=== PATIENT | male | born 1945 | race Caucasian/White ===

== ENCOUNTER 2018-01-19 10:10 | Observation (INO) | payer MEDICARE, BC ==
[2018-01-19] VITALS (8 sets, daily range): BP systolic 117–182; BP diastolic 63–89; PULSE 75–89; RESP 14–18; TEMP 98–98.4; O2SAT 97–100
[~2018-01-19] VITALS: Ht 180.3 cm; Wt 95.0 kg
[~2018-01-19 10:10] MED LIST: ATOR80TA PO; CORE6.25 PO; ECOT325T PO; ISOS30TA3 PO; LISI-360 PO
[2018-01-19] MEDS ORDERED: SODIUM CHLORIDE 0.9% FLUSH 10 ML FLUSH IVF PRN (11:00)
--- NOTE | 2018-01-19 11:06 | PD ---
HPI Chief Complaint: Syncope/Near-Syncope Time Seen by Provider: 10:51 Travel History International Travel<30 days: No Contact w/Intl Traveler<30days: No Traveled to known affect area: No History of Present Illness HPI Patient is a 72-year-old male presents emergency department for evaluation of syncopal episode and head injury. Patient apparently was standing not doing anything in particular when he just fell. He is a coming by his sister who states that he was just standing or not doing a thing and ended up on the ground. This is never happened before. He denies any chest pain palpitations shortness of breath nausea vomiting diarrhea. Denies any head pain or neck pain but is fairly certain that he hit his head. He does not recall the actual event when it happened. According to his sister when they were driving here the patient had some altered sensations of awareness and was significantly altered, he was shaking but was semi-conscious during it, he has never had a history of seizure disorder in the past. He does have a history of bypass surgery. PFSH Past Medical History Cancer: Yes (skin cancer and some removal ) Cardiovascular Problems: Yes Endocrine: No Gastrointestinal Disorders: No Genitourinary: No Hypertension: Yes Immune Disorder: No Implanted Vascular Access Dvce: No Musculoskeletal: No Neurologic: No Psychiatric: No Reproductive: No Respiratory: No Past Surgical History Ear Surgery: Yes (perforated eardrum repair ) Other Surgery: No Social History Alcohol Use: Yes (occasional) Tobacco Use: No Substance Use: No Allergies-Medications (Allergen,Severity, Reaction): Coded Allergies: No Known Allergies (Unverified , 03/24/14) Reported Meds & Prescriptions Reported Meds & Active Scripts Active Review of Systems Except as stated in HPI: all other systems reviewed are Neg Physical Exam Narrative GENERAL: Well-developed well-nourished no obvious distress. SKIN: Focused skin assessment warm/dry. HEAD: Atraumatic. Normocephalic. No andino signs no raccoons eyes. EYES: Pupils equal and round. No scleral icterus. No injection or drainage. ENT: No nasal bleeding or discharge. Mucous membranes pink and moist. NECK: Trachea midline. No JVD. CARDIOVASCULAR: Regular rate and rhythm. No murmur appreciated. 2+ bilaterally equal pulses in all 4 extremities. RESPIRATORY: No accessory muscle use. Clear to auscultation. Breath sounds equal bilaterally. GASTROINTESTINAL: Abdomen soft, non-tender, nondistended. Hepatic and splenic margins not palpable. MUSCULOSKELETAL: No obvious deformities. No clubbing. No cyanosis. No edema. NEUROLOGICAL: Awake and alert. No obvious cranial nerve deficits. Motor grossly within normal limits. Normal speech. PSYCHIATRIC: Appropriate mood and affect; insight and judgment normal. Data Data Last Documented VS Vital Signs Date Time Temp Pulse Resp B/P (MAP) Pulse Ox O2 Delivery O2 Flow Rate FiO2 01/19/18 10:55 100 Room Air 01/19/18 10:44 75 17 01/19/18 10:16 98.4 131/80 (97) Orders Orders Electrocardiogram (01/19/18 10:51) Complete Blood Count With Diff (01/19/18 10:51) Comprehensive Metabolic Panel (01/19/18 10:51) Ckmb (Isoenzyme) Profile (01/19/18 10:51) Troponin I (01/19/18 10:51) Act Partial Throm Time (Ptt) (01/19/18 10:51) Prothrombin Time / Inr (Pt) (01/19/18 10:51) Chest, Single Ap (01/19/18 10:51) Ct Brain W/O Iv Contrast(Rout) (01/19/18 10:51) Ct Cerv Spine W/O Contrast (01/19/18 10:51) Ecg Monitoring (01/19/18 10:51) Iv Access Insert/Monitor (01/19/18 10:51) Oximetry (01/19/18 10:51) Sodium Chloride 0.9% Flush (Ns Flush) (01/19/18 11:00) CKMB (01/19/18 11:07) CKMB% (01/19/18 11:07) Admit Order (Ed Use Only) (01/19/18 ) Labs Laboratory Tests Test 01/19/18 11:07 White Blood Count 11.4 TH/MM3 Red Blood Count 4.73 MIL/MM3 Hemoglobin 14.6 GM/DL Hematocrit 42.1 % Mean Corpuscular Volume 88.9 FL Mean Corpuscular Hemoglobin 30.9 PG Mean Corpuscular Hemoglobin Concent 34.8 % Red Cell Distribution Width 13.3 % Platelet Count 226 TH/MM3 Mean Platelet Volume 9.3 FL Neutrophils (%) (Auto) 81.9 % Lymphocytes (%) (Auto) 7.5 % Monocytes (%) (Auto) 10.3 % Eosinophils (%) (Auto) 0.1 % Basophils (%) (Auto) 0.2 % Neutrophils # (Auto) 9.3 TH/MM3 Lymphocytes # (Auto) 0.9 TH/MM3 Monocytes # (Auto) 1.2 TH/MM3 Eosinophils # (Auto) 0.0 TH/MM3 Basophils # (Auto) 0.0 TH/MM3 CBC Comment DIFF FINAL Differential Comment Erythrocyte Sedimentation Rate 29 mm/hr Prothrombin Time 11.8 SEC Prothromb Time International Ratio 1.2 RATIO Activated Partial Thromboplast Time 29.3 SEC Blood Urea Nitrogen 8 MG/DL Creatinine 0.78 MG/DL Random Glucose 119 MG/DL Total Protein 7.3 GM/DL Albumin 3.2 GM/DL Calcium Level 8.6 MG/DL Alkaline Phosphatase 72 U/L Aspartate Amino Transf (AST/SGOT) 24 U/L Alanine Aminotransferase (ALT/SGPT) 24 U/L Total Bilirubin 1.6 MG/DL Sodium Level 141 MEQ/L Potassium Level 3.3 MEQ/L Chloride Level 105 MEQ/L Carbon Dioxide Level 28.0 MEQ/L Anion Gap 8 MEQ/L Estimat Glomerular Filtration Rate 98 ML/MIN Total Creatine Kinase 235 U/L Creatine Kinase MB 2.3 NG/ML Troponin I LESS THAN 0.02 NG/ML MDM Medical Decision Making Medical Screen Exam Complete: Yes Emergency Medical Condition: Yes Differential Diagnosis Syncope, seizure unlikely, arrhythmia, anemia peer Narrative Course Patient was roomed in the emergency department, fairly alert and oriented for me he did have some episodes of wandering after his daughter left, probably has a mild dementia. She describes a period of significant significant event that happened today. Think is reasonable for observation to the hospitalist. His initial workup with CT head, EKG basic labs and troponin are negative. Diagnosis Primary Impression: Syncope Admitting Information Admitting Physician Requests: Observation Condition: Stable Fredy Santacruz MD Jan 19, 2018 11:06
[2018-01-19 11:27] LABS: AUTOMATED NEUTROPHIL # 9.3 TH/MM3 (1.8-7.7); BASOPHIL % 0.2 % (0.0-2.0); EOSINOPHIL % 0.1 % (0.0-4.0); HEMATOCRIT 42.1 % (39.0-51.0); HEMOGLOBIN 14.6 GM/DL (13.0-17.0); LYMPH % 7.5 % (9.0-44.0); LYMPHOCYTE # 0.9 TH/MM3 (1.0-4.8); MEAN CELL VOLUME 88.9 FL (80.0-100.0); MEAN CORPUSCULAR HEMOGLOBIN 30.9 PG (27.0-34.0); MEAN CORPUSCULAR HGB CONC 34.8 % (32.0-36.0); MEAN PLATELET VOLUME 9.3 FL (7.0-11.0); MONO % 10.3 % (0.0-8.0); MONOCYTE # 1.2 TH/MM3 (0-0.9); NEUT % 81.9 % (16.0-70.0); PLATELET COUNT 226 TH/MM3 (150-450); RED BLOOD COUNT 4.73 MIL/MM3 (4.50-5.90); RED CELL DISTRIBUTION WIDTH 13.3 % (11.6-17.2); WHITE BLOOD COUNT 11.4 TH/MM3 (4.0-11.0)
--- NOTE | 2018-01-19 11:32 | RADRPT ---
EXAM DATE/TIME: 01/19/2018 11:10 [facility] COMPARISON: No previous studies available for comparison. INDICATIONS : Syncopal episode, hit head on floor. RADIATION DOSE: 66.34 CTDIvol (mGy) MEDICAL HISTORY : Hypertension. SURGICAL HISTORY : None. ENCOUNTER: Initial ACUITY: 1 day PAIN SCALE: 0/10 LOCATION: cranial TECHNIQUE: Multiple contiguous axial images were obtained of the head. Using automated exposure control and adj ustment of the mA and/or kV according to patient size, radiation dose was kept as low as reasonably a chievable to obtain optimal diagnostic quality images. DICOM format image data is available electro nically for review and comparison. FINDINGS: CEREBRUM: The ventricles are normal for age. No evidence of midline shift, mass lesion, hemorrhage or acute in farction. No extra-axial fluid collections are seen. POSTERIOR FOSSA: The cerebellum and brainstem are intact. The 4th ventricle is midline. The cerebellopontine angle i s unremarkable. EXTRACRANIAL: The visualized portion of the orbits is intact. SKULL: The calvaria is intact. No evidence of skull fracture. CONCLUSION: 1. No acute findings. Crow Matthews MD on January 19, 2018 at 11:27 Board Certified Radiologist. This report was verified electronically.
--- NOTE | 2018-01-19 11:35 | RADRPT ---
EXAM DATE/TIME: 01/19/2018 11:10 [facility] COMPARISON: No previous studies available for comparison. INDICATIONS : Trauma, syncopal episode. RADIATION DOSE: 17.52 CTDIvol (mGy) MEDICAL HISTORY : Hypertension. SURGICAL HISTORY : None. ENCOUNTER: Initial ACUITY: 1 day PAIN SCALE: 0/10 LOCATION: cranial TECHNIQUE: Volumetric scanning of the cervical spine was performed. Multiplanar reconstructions in the sagittal, coronal and oblique axial planes were performed. Using automated exposure control and adjustment o f the mA and/or kV according to patient size, radiation dose was kept as low as reasonably achievable to obtain optimal diagnostic quality images. DICOM format image data is available electronically f or review and comparison. FINDINGS: VERTEBRAE: Normal vertebral body height. ALIGNMENT: No evidence of subluxation. C2-C3: The bony spinal canal is normal in size. No evidence of disc bulge or herniation. The neural forami na are bilaterally patent. C3-C4: The bony spinal canal is normal in size. No evidence of disc bulge or herniation. The neural forami na are bilaterally patent. C4-C5: The bony spinal canal is normal in size. No evidence of disc bulge or herniation. The neural forami na are bilaterally patent. C5-C6: The bony spinal canal is normal in size. No evidence of disc bulge or herniation. The neural forami na are bilaterally patent. C6-C7: The bony spinal canal is normal in size. No evidence of disc bulge or herniation. The neural forami na are bilaterally patent. C7-T1: The bony spinal canal is normal in size. No evidence of disc bulge or herniation. The neural forami na are bilaterally patent. CONCLUSION: 1. No acute findings. Moderate degenerative disc disease and facet arthropathy. Crow Matthews MD on January 19, 2018 at 11:30 Board Certified Radiologist. This report was verified electronically.
[2018-01-19 11:36] LABS: INTERNATIONAL NORMALIZED RATIO 1.2 RATIO; PROTHROMBIN TIME - PATIENT 11.8 SEC (9.8-11.6)
--- NOTE | 2018-01-19 11:36 | RADRPT ---
EXAM DATE/TIME: 01/19/2018 10:59 [facility] COMPARISON: No previous studies available for comparison. INDICATIONS : Syncope, short of breath, chest discomfort. MEDICAL HISTORY : Myocardial infarction. SURGICAL HISTORY : CABG. ENCOUNTER: Initial ACUITY: 1 day PAIN SCORE: 0/10 LOCATION: Bilateral chest FINDINGS: A single view of the chest demonstrates the lungs to be symmetrically aerated without evidence of mas s, infiltrate or effusion. The cardiomediastinal contours are unremarkable. Postoperative median colt rnotomy. Osseous structures are intact. CONCLUSION: 1. No acute findings. Postoperative median sternotomy. Crow Matthews MD on January 19, 2018 at 11:33 Board Certified Radiologist. This report was verified electronically.
[2018-01-19 11:44] LABS: ALBUMIN 3.2 GM/DL (3.4-5.0); ALT (GPT) 24 U/L (12-78); AST (GOT) 24 U/L (15-37); BLOOD UREA NITROGEN 8 MG/DL (7-18); CALCIUM 8.6 MG/DL (8.5-10.1); CHLORIDE 105 MEQ/L (98-107); CREATININE 0.78 MG/DL (0.60-1.30); GLOMERULAR FILTRATION RATE 98 ML/MIN (>89); GLUCOSE,RANDOM 119 MG/DL (74-106); SODIUM (NA) 141 MEQ/L (136-145)
[2018-01-19 11:48] LABS: ALKALINE PHOSPHATASE 72 U/L (45-117); TOTAL BILIRUBIN ADULT 1.6 MG/DL (0.2-1.0); TOTAL PROTEIN 7.3 GM/DL (6.4-8.2); TROPONIN I LESS THAN 0.02 NG/ML (0.02-0.05)
[2018-01-19] MEDS ORDERED: SODIUM CHLORIDE 0.9% FLUSH 10 ML FLUSH IV FLUSH PRN (12:45)
[2018-01-19 13:32] LABS: TROPONIN I LESS THAN 0.02 NG/ML (0.02-0.05)
--- NOTE | 2018-01-19 14:22 | RADRPT ---
EXAM DATE/TIME: 01/19/2018 12:58 [facility] COMPARISON: No previous studies available for comparison. INDICATIONS : Syncope. MEDICAL HISTORY : Skin cancer. SURGICAL HISTORY : Skin cancer removal. ENCOUNTER: Initial ACUITY: 1 day PAIN SCORE: 0/10 LOCATION: Bilateral neck. PEAK SYSTOLIC VELOCITIES (cm/sec): ICA/CCA RATIO: Right: 0.5 Left: 0.5 ICA: Right: 39.0 Left: 48.8 CCA: Right: 83.2 Left: 98.1 ECA: Right: 67.3 Left: 52.6 VERTEBRAL: Right: 42.4 antegrade Left: 41.8 antegrade Elevated flow velocities and ICA/CCA ratios have been found to correlate with increased degrees of vessel stenosis, calculated as percentage of diameter relative to a normal segment of distal ICA/CCA FINDINGS: Minimal plaque is identified in both carotid bulbs. RIGHT CAROTID: No significant stenosis is visualized. The waveforms are within normal limits. LEFT CAROTID: No significant stenosis is visualized. The waveforms are within normal limits. VERTEBRAL ARTERIES: Antegrade flow is seen in both vertebral arteries. MISCELLANEOUS: None. CONCLUSION: 1. Minimal bilateral carotid plaque. 2. No evidence of hemodynamically significant stenosis. 3. Antegrade flow in both to arteries. Ashok Henry MD on January 19, 2018 at 14:18 Board Certified Radiologist. This report was verified electronically.
--- NOTE | 2018-01-19 15:47 | HHI.HP ---
HPI Service [facility] Hospitalists Primary Care Physician Silvia Villafana M.D. Admission Diagnosis Syncope Diagnoses: Chief Complaint: Witnessed syncopal episode and fall Travel History International Travel<30 Days: No Contact w/Intl Traveler <30 Da: No Traveled to Known Affected Are: No History of Present Illness Written by Lisseth Russell, acting as scribe for Dr. Miller on 01/19/18 at 15: 20. This is a 72-year-old male with past medical history of coronary artery disease status post previous CABG, hypertension and dyslipidemia who was brought in to [facility] ED by his sister who witnessed patient have a syncopal episode, fall backward and hit his head. Patient is extremely poor historian and therefore history is obtained from review of electronic medical record and discussion with ED physician and nursing staff. Per the ED note, patient was standing not doing anything in particular when he fell to the ground. Per the sister's report, patient was significantly altered all she was driving into the ED. He was shaking and was semi-consciousness. Patient denies any complaints at this time. He repetitively states he wants to go home. He denies any fever , chills, weakness, chest pain, shortness of breath, nausea, vomiting, abdominal pain, hematuria, dysuria or diarrhea. Reportedly, sister informed the nursing staff that patient has new onset dementia. In the ED, CT of the head was obtained which showed no acute findings. Patient's laboratory studies were significant for mild leukocytosis with white count 11.4, hypokalemia with potassium 3.3 and elevated total bilirubin 1.6. Initial troponin was negative and EKG was unremarkable. Patient had a syncopal episode in 2013 but no cause was identified. Review of Systems Except as stated in HPI: all other systems reviewed are Neg Past Family Social History Past Medical History Coronary artery disease s/p CABG Hypertension Dyslipidemia Past Surgical History CABG Reported Medications Lisinopril 10 Mg Tab 10 Mg PO BID Ec Aspirin (Aspirin) 325 Mg Tab 325 Mg PO DAILY Atorvastatin Calcium 80 Mg Tab 80 Mg PO HS Isosorbide Mononitrate Er (Isosorbide Mononitrate) 30 Mg Tab 30 Mg PO HS Coreg (Carvedilol) 6.25 Mg Tab 6.25 Mg PO BID Allergies: Coded Allergies: No Known Allergies (Unverified , 03/24/14) Active Ordered Medications Current Medications Medications (Trade) Dose Ordered Sig/Charla Route Start Time Stop Time Status Last Admin (NS Flush) 2 ml UNSCH PRN IV FLUSH 01/19/18 12:45 (NS Flush) 2 ml BID IV FLUSH 01/19/18 21:00 Family History When asked about family medical history of strokes or heart disease patient replies "probably" Social History She denies any tobacco use, alcohol consumption or illicit drug use. Apparently , he is and lives with his who is currently hospitalized herself. Physical Exam Vital Signs Vital Signs Date Time Temp Pulse Resp B/P (MAP) Pulse Ox O2 Delivery O2 Flow Rate FiO2 01/19/18 14:42 77 18 161/81 (107) 100 Room Air 01/19/18 12:55 78 18 117/63 (81) 100 Room Air 01/19/18 10:55 100 Room Air 01/19/18 10:44 75 17 96 Room Air 01/19/18 10:16 98.4 78 16 131/80 (97) 97 Physical Exam GENERAL: This is a well-nourished, well-developed male patient, in no apparent distress. Awake and alert. SKIN: No rashes, ecchymoses or lesions. Cool and dry. HEAD: Atraumatic. Normocephalic. No temporal or scalp tenderness. EYES: Pupils equal round and reactive. Extraocular motions intact. No scleral icterus. No injection or drainage. ENT: Nose without bleeding or purulent drainage. Throat without erythema, tonsillar hypertrophy or exudate. Uvula midline. Airway patent. NECK: Trachea midline. No lymphadenopathy. Supple, nontender, no meningeal signs. CARDIOVASCULAR: Regular rate and rhythm without murmurs, gallops, or rubs. RESPIRATORY: Clear to auscultation. Breath sounds equal bilaterally. No wheezes , rales, or rhonchi. GASTROINTESTINAL: Abdomen soft, non-tender, nondistended. No hepato-splenomegaly , or palpable masses. No guarding. MUSCULOSKELETAL: Extremities without clubbing, cyanosis, or edema. No joint tenderness, effusion, or edema noted. No calf tenderness. NEUROLOGICAL: Awake and alert. Patient is oriented to self and place but disoriented to time. Cranial nerves II through XII grossly intact. Motor and sensory grossly within normal limits. Five out of 5 muscle strength in all muscle groups. Normal speech. Laboratory Laboratory Tests Test 01/19/18 11:07 01/19/18 12:50 White Blood Count 11.4 Red Blood Count 4.73 Hemoglobin 14.6 Hematocrit 42.1 Mean Corpuscular Volume 88.9 Mean Corpuscular Hemoglobin 30.9 Mean Corpuscular Hemoglobin Concent 34.8 Red Cell Distribution Width 13.3 Platelet Count 226 Mean Platelet Volume 9.3 Neutrophils (%) (Auto) 81.9 Lymphocytes (%) (Auto) 7.5 Monocytes (%) (Auto) 10.3 Eosinophils (%) (Auto) 0.1 Basophils (%) (Auto) 0.2 Neutrophils # (Auto) 9.3 Lymphocytes # (Auto) 0.9 Monocytes # (Auto) 1.2 Eosinophils # (Auto) 0.0 Basophils # (Auto) 0.0 CBC Comment DIFF FINAL Differential Comment Prothrombin Time 11.8 Prothromb Time International Ratio 1.2 Activated Partial Thromboplast Time 29.3 Blood Urea Nitrogen 8 Creatinine 0.78 Random Glucose 119 Total Protein 7.3 Albumin 3.2 Calcium Level 8.6 Alkaline Phosphatase 72 Aspartate Amino Transf (AST/SGOT) 24 Alanine Aminotransferase (ALT/SGPT) 24 Total Bilirubin 1.6 Sodium Level 141 Potassium Level 3.3 Chloride Level 105 Carbon Dioxide Level 28.0 Anion Gap 8 Estimat Glomerular Filtration Rate 98 Total Creatine Kinase 235 Creatine Kinase MB 2.3 Troponin I LESS THAN 0.02 LESS THAN 0.02 Ethyl Alcohol Level LESS THAN 3 Result Diagram: 01/19/18 1107 01/19/18 1107 Imaging Last Impressions Head CT 01/19/18 105 Signed Impressions: Service Date/Time: Friday, January 19, 2018 11:10 - CONCLUSION: 1. No acute findings. Crow Matthews MD Chest X-Ray 01/19/181050 Signed Impressions: Service Date/Time: Friday, January 19, 2018 10:59 - CONCLUSION: 1. No acute findings. Postoperative median sternotomy. Crow Matthews MD Cervical Spine CT 01/19/181050 Signed Impressions: Service Date/Time: Friday, January 19, 2018 11:10 - CONCLUSION: 1. No acute findings. Moderate degenerative disc disease and facet arthropathy. Crow Matthews MD Caprini VTE Risk Assessment Caprini VTE Risk Assessment: Mod/High Risk (score >= 2) Caprini Risk Assessment Model Point Value = 1 Point Value = 2 Point Value = 3 Point Value = 5 Age 41-60 Minor surgery BMI > 25 kg/m2 Swollen legs Varicose veins or History of unexplained or recurrent spontaneous Oral contraceptives or hormone replacement Sepsis (< 1 month) Serious lung disease, including pneumonia (< 1 month) Abnormal pulmonary function Acute myocardial infarction Congestive heart failure (< 1 month) History of inflammatory bowel disease Medical patient at bed rest Age 61-74 Arthroscopic surgery Major open surgery (> 45 min) Laparoscopic surgery (> 45 min) Malignancy Confined to bed (> 72 hours) Immobilizing plaster cast Central venous access Age >= 75 History of VTE Family history of VTE Factor V Leiden Prothrombin [id number] Lupus anticoagulant Anticardiolipin antibodies Elevated serum homocysteine Heparin-induced thrombocytopenia Other congenital or acquired thrombophilia Stroke (< 1 month) Elective arthroplasty Hip, pelvis, or leg fracture Acute spinal cord injury (< 1 month) Prophylaxis Regimen Total Risk Factor Score Risk Level Prophylaxis Regimen 0-1 Low Early ambulation 2 Moderate Order ONE of the following: *Sequential Compression Device (SCD) *Heparin 5000 units SQ BID 3-4 Higher Order ONE of the following medications: *Heparin 5000 units SQ TID *Enoxaparin/Lovenox 40 mg SQ daily (WT < 150 kg, CrCl > 30 mL/min) *Enoxaparin/Lovenox 30 mg SQ daily (WT < 150 kg, CrCl > 10-29 mL/min) *Enoxaparin/Lovenox 30 mg SQ BID (WT < 150 kg, CrCl > 30 mL/min) AND/OR *Sequential Compression Device (SCD) 5 or more Highest Order ONE of the following medications: *Heparin 5000 units SQ TID (Preferred with Epidurals) *Enoxaparin/Lovenox 40 mg SQ daily (WT < 150 kg, CrCl > 30 mL/min) *Enoxaparin/Lovenox 30 mg SQ daily (WT < 150 kg, CrCl > 10-29 mL/min) *Enoxaparin/Lovenox 30 mg SQ BID (WT < 150 kg, CrCl > 30 mL/min) AND *Sequential Compression Device (SCD) Assessment and Plan Assessment and Plan 72-year-old male with past medical history of coronary artery disease status post previous CABG, hypertension and dyslipidemia who was brought in to [facility] ED by his sister who witnessed patient have a syncopal episode, fall backward and hit his head. //Syncopal episode in patient with CAD s/p CABG -Consult neurology, appreciate recommendations -Consult cardiology, appreciate recommendations -Neuro checks -obtain orthostatic BP measurements -Continuous cardiac monitoring -Obtain carotid ultrasound -EEG study -Holter monitor -Obtain 2D echo -serial troponin and EKG -Obtain UDS -seizure and fall precautions -obtain TSH level and A1c //Encephalopathy/AMS -?new onset dementia -Await Neurology recommendations -Monitor //Hypokalemia -replete and repeat BMP in am //Hypertension //Dyslipidemia -Will resume patient's home medications once medication reconciliation updated //DVT prophylaxis -Bilateral SCD/DIMITRIS kaelamarissa Discussed Condition With Patient, ED physician, nursing staff This note was transcribed by stephanie Russell. I, Dr. Frandy Miller personally performed the history, physical exam, and medical decision making; and confirmed the accuracy of the information in the transcribed note. Authenticated by Dr. Frandy Miller on 01/21/18 at 07:43. Lisseth Russell Jan 19, 2018 15:47 Frandy Miller MD Jan 21, 2018 07:43
--- NOTE | 2018-01-19 15:49 | PD.CONS ---
History of Present Illness Service Neurology Consult Requested By er Reason for Consult syncope Primary Care Physician Silvia Villafana M.D. History of Present Illness 72-year-old male presents emergency department for evaluation of syncopal episode and head injury. went down without warning witnessed by sister who is not here. pt is a poor hx. his focus during the interview is leaving hospital. he denies any brewer, focal weakness, vision loss. denies hx of tia/stroke/sz. had [place]ope 2013 [place] [facility] [place]. PFSH Past Medical History Cardiovascular Problems: CABG Hypertension: Yes Past Surgical History Ear Surgery: Yes (perforated eardrum repair ) Other Surgery: No Social History Alcohol Use: Yes (occasional) Tobacco Use: No Substance Use: No lives with spouse Allergies-Medications (Allergen,Severity, Reaction): Coded Allergies: No Known Allergies (Unverified , 03/24/14) Reported Meds & Prescriptions Reported Meds & Active Scripts Active Reported Lisinopril 10 Mg Tab 10 Mg PO BID Ec Aspirin (Aspirin) 325 Mg Tab 325 Mg PO DAILY Atorvastatin Calcium 80 Mg Tab 80 Mg PO HS Isosorbide Mononitrate Er (Isosorbide Mononitrate) 30 Mg Tab 30 Mg PO HS Coreg (Carvedilol) 6.25 Mg Tab 6.25 Mg PO BID Review of Systems All other ROS: ROS reviewed as documented in chart Past Family Social History Allergies: Coded Allergies: No Known Allergies (Unverified , 03/24/14) Active Ordered Medications Current Medications Medications (Trade) Dose Ordered Sig/Charla Route Start Time Stop Time Status Last Admin (NS Flush) 2 ml UNSCH PRN IV FLUSH 01/19/18 12:45 (NS Flush) 2 ml BID IV FLUSH 01/19/18 21:00 Exam I&O / VS Vital Signs Date Time Temp Pulse Resp B/P (MAP) Pulse Ox O2 Delivery O2 Flow Rate FiO2 01/19/18 14:42 77 18 161/81 (107) 100 Room Air 01/19/18 12:55 78 18 117/63 (81) 100 Room Air 01/19/18 10:55 100 Room Air 01/19/18 10:44 75 17 96 Room Air 01/19/18 10:16 98.4 78 16 131/80 (97) 97 General: No acute distress Eye: EOMI, Normal conjuctiva Respiratory: Non-labored respirations Cardiology: Normal rate Musculoskeletal: ROM Neurologic: Alert, Normal sensory, Normal motor, CN II-XII intact, Normal DTR's Psychiatric: Cooperative, Appropriate mood & affect Exam Comments alert, ox 2. not to exact month or date. knows the year. pres Alexsander, pcp Broderick. follows, eomi, ou 3-2mm, no drift, msr sym Review/Management Diagnosis/Plan: (1) Syncope ICD Codes: R55 - Syncope Status: Acute Plan: etiology: cardiac arrhythmia? r/o vbi r/o sz glucose 119. ct brain nml recs cardio eval/tele mri/mra brain eeg f/u tsh orthostatics no driving needs outpatient cognitive eval (2) Dehydration ICD Codes: E86.0 - Dehydration Status: Acute (3) Hypertension ICD Codes: I10 - Hypertension Status: Acute (4) Hyperlipidemia ICD Codes: E78.5 - Hyperlipidemia Status: Acute Alexx Nielsen MD Jan 19, 2018 15:49
--- NOTE | 2018-01-19 16:44 | MG ---
cc: Og Khan MD, PhD Og Khan MD PhD TEST NUMBER: [id number] TECHNIQUE: A 17-channel EEG. DESCRIPTION: The background activity reveals mild slowing in the theta range at roughly 6 Hz. Amplitude is 20-30 microvolts. No lateralizing features are identified and no epileptiform features are identified. There is occasional muscle artifact. Hyperventilation was not done. Photic results in a modest driving response. INTERPRETATION: Mildly abnormal study consistent with a mild encephalopathy. Og Khan MD, PhD AMOL//kevin , 04:29 PM , 04:38 PM
[2018-01-19] MEDS ORDERED: POTASSIUM CHLORIDE 10 MEQ CONTROLLED RELEASE TAB PO ONE (16:45)
[2018-01-19 18:09] LABS: MAGNESIUM 2.3 MG/DL (1.5-2.5)
[2018-01-19 18:34] LABS: TROPONIN I LESS THAN 0.02 NG/ML (0.02-0.05)
[2018-01-19] MEDS: SODIUM CHLORIDE 0.9% FLUSH 10 ML FLUSH IV FLUSH SCH (21:00)
[2018-01-20] VITALS (7 sets, daily range): BP systolic 129–190; BP diastolic 71–88; PULSE 70–89; RESP 14–20; TEMP 97.9–99.4; O2SAT 95–98
[2018-01-20] MEDS ORDERED: cloNIDine HCL 0.1 MG TAB PO ONE (00:30)
--- NOTE | 2018-01-20 00:38 | MB ---
cc: Bolivar Moreira MD DATE: 01/19/2018 HISTORY OF PRESENT ILLNESS: Kevan is a very pleasant 72-year-old gentleman. He has a career consultant, but he cannot remember who the career consultant is. He had a syncopal episode prior to arrival to the ER, with a head injury. He does not recall the event. He denies chest pain, fever, chills, cough, GI or , bleeding, PND or orthopnea. The event was witnessed by his sister, who noted no prodromal type symptoms. PAST MEDICAL HISTORY: Includes CABG, skin cancer, perforated eardrum. SOCIAL HISTORY: Drinks alcohol occasionally. Denies tobacco use. ALLERGIES: NONE. MEDICATIONS: In the hospital, potassium repletion. PHYSICAL EXAMINATION: VITAL SIGNS: Blood pressure 183/89, pulse 89, respiration rate 14, temperature 98.0. GENERAL: He is alert and oriented x3, in no acute distress. NECK: Supple. No JVD. No bruit. CARDIOVASCULAR: S1, S2, no murmurs, rubs or gallops. LUNGS: Clear to auscultation bilaterally. ABDOMEN: Soft, nontender, nondistended, with positive bowel sounds. EXTREMITIES: No cyanosis, clubbing or edema. IMAGING: Carotid ultrasound shows minimal bilateral carotid plaque. Head CT: No acute findings. ____: No acute findings, postoperative median sternotomy. Cervical spine CT: No acute findings; moderate degenerative disk disease and facet arthropathy. EKG shows normal sinus rhythm with PACs. Repeat EKG: Normal sinus rhythm with PACs, corrected QT interval is 414 milliseconds. LABORATORY DATA: White count 11.4, hemoglobin 14.6, hematocrit 42.1, platelet count 226. Troponin less than 0.02 x3. Sodium 141, potassium 3.3, chloride 105, bicarb 20.0, BUN 8, creatinine 0.78, glucose 119. Ethyl alcohol is less than 3. FINAL DIAGNOSES: 1. Syncope with no prodrome. 2. Coronary artery disease. 3. History of hypertension. DISCUSSION: Recommend followup neurology recommendations, also followup 2D echo. Continue telemetry monitoring. Optimally, the patient should be on aspirin, statin and restart his beta dariela, but this will need to be cleared by neurology given the presentation of syncope. MD FABIANO Zeng/KEVAN , 11:47 PM , 12:36 AM
[2018-01-20 04:48] LABS: AUTOMATED NEUTROPHIL # 9.2 TH/MM3 (1.8-7.7); BASOPHIL % 0.1 % (0.0-2.0); EOSINOPHIL % 0.1 % (0.0-4.0); HEMATOCRIT 41.6 % (39.0-51.0); HEMOGLOBIN 14.5 GM/DL (13.0-17.0); LYMPH % 11.9 % (9.0-44.0); LYMPHOCYTE # 1.4 TH/MM3 (1.0-4.8); MEAN CELL VOLUME 90.3 FL (80.0-100.0); MEAN CORPUSCULAR HEMOGLOBIN 31.5 PG (27.0-34.0); MEAN CORPUSCULAR HGB CONC 34.8 % (32.0-36.0); MEAN PLATELET VOLUME 8.8 FL (7.0-11.0); MONO % 9.2 % (0.0-8.0); MONOCYTE # 1.1 TH/MM3 (0-0.9); NEUT % 78.7 % (16.0-70.0); PLATELET COUNT 268 TH/MM3 (150-450); RED CELL DISTRIBUTION WIDTH 13.4 % (11.6-17.2); WHITE BLOOD COUNT 11.7 TH/MM3 (4.0-11.0)
[2018-01-20 05:13] LABS: BICARBONATE 28.4 MEQ/L (21.0-32.0); CREATININE 0.78 MG/DL (0.60-1.30)
[2018-01-20] MEDS ORDERED: RESP: ALBUTEROL 2.5 MG/IPRATROPIUM 0.5 MG NEB (SCH) NEB ONE (08:15)
--- NOTE | 2018-01-20 08:18 | HHI.PR ---
Review/Management Diagnosis/Plan: (1) Syncope ICD Codes: R55 - Syncope Status: Acute Plan: etiology: cardiac arrhythmia? r/o vbi r/o sz glucose 119. ct brain nml i suspect he may have mci/early dementia recs cardio eval/tele-done mri/mra brain-pending eeg- no sz can be dc'd if mri/mra nml f/u with us in 1-2 weeks no driving needs outpatient cognitive eval (2) Dehydration ICD Codes: E86.0 - Dehydration Status: Acute (3) Hypertension ICD Codes: I10 - Hypertension Status: Acute (4) Hyperlipidemia ICD Codes: E78.5 - Hyperlipidemia Status: Acute Subjective Subjective Comments No acute events reported No headache No chest pain No dyspnea Active Medications Current Medications Medications (Trade) Dose Ordered Sig/Charla Route Start Time Stop Time Status Last Admin (NS Flush) 2 ml UNSCH PRN IV FLUSH 01/19/18 12:45 (NS Flush) 2 ml BID IV FLUSH 01/19/18 21:00 (Duoneb Neb) 1 ampule ONCE ONCE NEB 01/20/18 08:15 01/20/18 08:16 (Duoneb Neb) 1 ampule Q6HR WHILE AWAKE NEB NEB 01/20/18 14:00 Allergies Allergies Coded Allergies No Known Allergies (Unverified03/24/14) Review of Systems All other ROS: ROS reviewed as documented in chart Exam I&O / VS Vital Signs Date Time Temp Pulse Resp B/P (MAP) Pulse Ox O2 Delivery O2 Flow Rate FiO2 01/20/18 04:52 97.9 80 18 129/71 (90) 96 01/20/18 00:21 98.2 76 14 190/81 (117) 97 01/19/18 19:10 98.0 89 14 182/89 (120) 97 01/19/18 18:30 98.4 86 18 119/87 (98) 98 01/19/18 18:20 75 17 142/78 (99) 100 Room Air 01/19/18 16:03 85 17 178/86 (116) 98 Room Air 01/19/18 14:42 77 18 161/81 (107) 100 Room Air 01/19/18 12:55 78 18 117/63 (81) 100 Room Air 01/19/18 10:55 100 Room Air 01/19/18 10:44 75 17 96 Room Air 01/19/18 10:16 98.4 78 16 131/80 (97) 97 General: No acute distress Eye: EOMI, Normal conjuctiva Respiratory: Non-labored respirations Cardiology: Normal rate Musculoskeletal: ROM Neurologic: Alert, Normal sensory, Normal motor, CN II-XII intact, Normal DTR's Psychiatric: Cooperative, Appropriate mood & affect Exam Comments alert, ox 2. not to exact month or date. was struggling with name of hospital, calm, pleasant, answers other questions well, follows, eomi, ou 3-2mm, no drift , msr sym, no drift Objective Micro and Labs Laboratory Tests Test 01/19/18 11:07 01/19/18 12:50 01/19/18 17:10 01/20/18 04:20 White Blood Count 11.4 11.7 Red Blood Count 4.73 4.60 Hemoglobin 14.6 14.5 Hematocrit 42.1 41.6 Mean Corpuscular Volume 88.9 90.3 Mean Corpuscular Hemoglobin 30.9 31.5 Mean Corpuscular Hemoglobin Concent 34.8 34.8 Red Cell Distribution Width 13.3 13.4 Platelet Count 226 268 Mean Platelet Volume 9.3 8.8 Neutrophils (%) (Auto) 81.9 78.7 Lymphocytes (%) (Auto) 7.5 11.9 Monocytes (%) (Auto) 10.3 9.2 Eosinophils (%) (Auto) 0.1 0.1 Basophils (%) (Auto) 0.2 0.1 Neutrophils # (Auto) 9.3 9.2 Lymphocytes # (Auto) 0.9 1.4 Monocytes # (Auto) 1.2 1.1 Eosinophils # (Auto) 0.0 0.0 Basophils # (Auto) 0.0 0.0 CBC Comment DIFF FINAL DIFF FINAL Differential Comment Erythrocyte Sedimentation Rate 29 Prothrombin Time 11.8 Prothromb Time International Ratio 1.2 Activated Partial Thromboplast Time 29.3 Blood Urea Nitrogen 8 10 Creatinine 0.78 0.78 Random Glucose 119 107 Total Protein 7.3 Albumin 3.2 Calcium Level 8.6 9.0 Alkaline Phosphatase 72 Aspartate Amino Transf (AST/SGOT) 24 Alanine Aminotransferase (ALT/SGPT) 24 Total Bilirubin 1.6 Sodium Level 141 142 Potassium Level 3.3 3.7 Chloride Level 105 104 Carbon Dioxide Level 28.0 28.4 Anion Gap 8 10 Estimat Glomerular Filtration Rate 98 98 Total Creatine Kinase 235 Creatine Kinase MB 2.3 Troponin I LESS THAN 0.02 LESS THAN 0.02 LESS THAN 0.02 Ethyl Alcohol Level LESS THAN 3 Magnesium Level 2.3 Vitamin B12 Level 414 Thyroid Stimulating Hormone 3rd Gen 0.767 Alexx Nielsen MD Jan 20, 2018 08:18
--- NOTE | 2018-01-20 09:12 | HHI.PR ---
Subjective Remarks Follow-up on patient with syncopal episode. Patient seen and examined. Patient remains confused. He denies any acute medical complaints. Denies any vision loss, headache or dizziness. Denies any chest pain or shortness of breath. Does report some cough with thick sputum production. Denies any fever or chills. Denies any nausea, vomiting or abdominal pain. Denies any urinary difficulties, diarrhea or constipation. Objective Vitals Vital Signs Date Time Temp Pulse Resp B/P (MAP) Pulse Ox O2 Delivery O2 Flow Rate FiO2 01/20/18 08:38 98.0 79 16 145/72 (96) 96 146/82 (103) 153/88 (109) 01/20/18 04:52 97.9 80 18 129/71 (90) 96 01/20/18 00:21 98.2 76 14 190/81 (117) 97 01/19/18 19:10 98.0 89 14 182/89 (120) 97 01/19/18 18:30 98.4 86 18 119/87 (98) 98 01/19/18 18:20 75 17 142/78 (99) 100 Room Air 01/19/18 16:03 85 17 178/86 (116) 98 Room Air 01/19/18 14:42 77 18 161/81 (107) 100 Room Air 01/19/18 12:55 78 18 117/63 (81) 100 Room Air 01/19/18 10:55 100 Room Air 01/19/18 10:44 75 17 96 Room Air 01/19/18 10:16 98.4 78 16 131/80 (97) 97 Result Diagram: 01/20/1841901/20/18419 Imaging Last Impressions Head CT 01/19/18 105 Signed Impressions: Service Date/Time: Friday, January 19, 2018 11:10 - CONCLUSION: 1. No acute findings. Crow Matthews MD Chest X-Ray 01/19/18 105 Signed Impressions: Service Date/Time: Friday, January 19, 2018 10:59 - CONCLUSION: 1. No acute findings. Postoperative median sternotomy. Crow Matthews MD Cervical Spine CT 01/19/18 105 Signed Impressions: Service Date/Time: Friday, January 19, 2018 11:10 - CONCLUSION: 1. No acute findings. Moderate degenerative disc disease and facet arthropathy. Crow Matthews MD Carotid Artery Ultrasound 01/19/18 0000 Signed Impressions: Service Date/Time: Friday, January 19, 2018 12:58 - CONCLUSION: 1. Minimal bilateral carotid plaque. 2. No evidence of hemodynamically significant stenosis. 3. Antegrade flow in both to arteries. Ashok Henry MD Objective Remarks GENERAL: This is a well-nourished, well-developed male patient, in no apparent distress. Awake and alert. Sitter at the bedside. SKIN: Cool and dry. HEAD: Atraumatic. Normocephalic. EYES: Extraocular motions intact. No scleral icterus. No injection or drainage. ENT: Nose without bleeding or purulent drainage. Airway patent. MMM. NECK: Trachea midline. CARDIOVASCULAR: Regular rate and rhythm without murmurs, gallops, or rubs. RESPIRATORY: Coarse BS, clears with coughing. Mild wheezing. GASTROINTESTINAL: Abdomen soft, non-tender, nondistended. No hepato-splenomegaly , or palpable masses. No guarding. MUSCULOSKELETAL: Extremities without clubbing, cyanosis, or edema. NEUROLOGICAL: Awake and alert. Patient is oriented to self only. Cranial nerves II through XII grossly intact. Motor and sensory grossly within normal limits. No focal neurologic findings. Normal speech. Medications and IVs Current Medications Medications (Trade) Dose Ordered Sig/Charla Route Start Time Stop Time Status Last Admin (NS Flush) 2 ml UNSCH PRN IV FLUSH 01/19/18 12:45 (NS Flush) 2 ml BID IV FLUSH 01/19/18 21:00 (Duoneb Neb) 1 ampule Q6HR WHILE AWAKE NEB NEB 01/20/18 14:00 A/P Assessment and Plan 72-year-old male with past medical history of coronary artery disease status post previous CABG, hypertension and dyslipidemia who was brought in to [facility] ED by his sister who witnessed patient have a syncopal episode, fall backward and hit his head. //Syncopal episode in patient with CAD s/p CABG -Consult neurology, appreciate recommendations - likely early dementia, cleared for discharge if MRI/MRA WNL. No driving. Needs outpt cognitive evaluation. F/U in 1-2 weeks. -Consult cardiology, appreciate recommendations - aspirin, statin and resume BB when cleared by neurology. -Neuro checks -orthostatic BP measurements negative -Continuous cardiac monitoring -Carotid ultrasound minimal bilateral carotid plaque, no hemodynamically significant stenosis -EEG study - no e/o seizure -Holter monitor -2D echo - pending -serial troponin and EKG, r/o ACS -Obtain UA/UDS - pending -seizure and fall precautions -TSH level 0.767 -A1c pending //Encephalopathy/AMS -?new onset dementia -Await Neurology recommendations -Monitor -ST for cognitive evaluation -Consult case management to assist with discharge planning //Suspected Mild COPD exacerbation -Duonebs -CXR reviewed, no evidence of acute cardiopulmonary process -O2 sats 96% on room air -monitor respiratory status //Hypokalemia -Resolved status post repletion //Hypertension //Dyslipidemia -Will resume patient's home medications once medication reconciliation updated //DVT prophylaxis -Bilateral SCD/DIMITRIS hose Discharge Planning Likely discharge later today pending cardiology clearance, echo results, MRI/ MRA results and case management assistance with placement Lisseth Russell Jan 20, 2018 09:12
[2018-01-20] MEDS ORDERED: LISINOPRIL 5 MG TAB PO ONE (09:15)
[2018-01-20] MEDS ORDERED: CARVEDILOL 6.25 MG TAB PO ONE (09:15)
[2018-01-20] MEDS: SODIUM CHLORIDE 0.9% FLUSH 10 ML FLUSH IV FLUSH SCH ×2 (10:28→21:47)
[2018-01-20] MEDS ORDERED: ATOR80TA45 PO (13:13)
[2018-01-20] MEDS ORDERED: LISI-515 PO (13:13)
[2018-01-20] MEDS ORDERED: ASPI-183 PO (13:13)
[2018-01-20] MEDS: RESP: ALBUTEROL 2.5 MG/IPRATROPIUM 0.5 MG NEB (SCH) NEB ×2 (13:25→20:08)
--- NOTE | 2018-01-20 13:30 | ECHRPT ---
Indication: CVA/TIA CONCLUSIONS Normal left ventricular size. Wall thickness is normal. The left ventricular systolic function is hyperdynamic with an estimated ejection fraction in the ra nge of 65- 70%. There is abnormal septal motion. The right ventricle is mildly dilated. The right ventricular systoilc function is normal. The left atrial size is pxpz-tk-wnznnjosrt dilated. The right atrial size is mildly dilated. Mild mitral annular calcification. Mild mitral valve regurgitation. There is trace tricuspid valve regurgitation. The inferior vena cava was not well visualized. BP: 129 / 71 HR: 80 Rhythm: Sinus MEASUREMENTS (Male / Female) Normal Values Technical Quality:Fair 2D ECHO LV Diastolic Diameter PLAX 4.9 cm 4.2 - 5.9 / 3.9 - 5.3 cm LV Systolic Diameter PLAX 3.3 cm IVS Diastolic Thickness 0.8 cm 0.6 - 1.0 / 0.6 - 0.9 cm LVPW Diastolic Thickness 0.8 cm 0.6 - 1.0 / 0.6 - 0.9 cm LV Relative Wall Thickness 0.3 RV Internal Dim ED PLAX 3.6 cm LVOT Diameter 2.0 cm Aortic Root Diameter 2.9 cm LA Systolic Diameter LX 3.9 cm 3.0 - 4.0 / 2.7 - 3.8 cm M-MODE AV Cusp Separation MM 2.0 cm DOPPLER AV Peak Velocity 124.0 cm/s AV Peak Gradient 6.2 mmHg AV Mean Gradient 4.0 mmHg AV Velocity Time Integral 23.3 cm LVOT Peak Velocity 82.7 cm/s LVOT Peak Gradient 2.7 mmHg LVOT Velocity Time Integral 18.7 cm AV Area Cont Eq vti 2.5 cm AV Area Cont Eq pk 2.1 cm Mitral E Point Velocity 85.9 cm/s Mitral A Point Velocity 101.0 cm/s Mitral E to A Ratio 0.9 LV E' Lateral Velocity 9.3 cm/s Mitral E to LV E' Lateral Ratio 9.3 PV Peak Velocity 78.2 cm/s PV Peak Gradient 2.4 mmHg FINDINGS LEFT VENTRICLE Normal left ventricular size. Wall thickness is normal. The left ventricular systolic function is hyperdynamic with an estimated ejection fraction in the ra nge of 65- 70%. There is abnormal septal motion. RIGHT VENTRICLE The right ventricle is mildly dilated. The right ventricular systoilc function is normal. LEFT ATRIUM The left atrial size is oddg-qh-dgacbecaei dilated. RIGHT ATRIUM The right atrial size is mildly dilated. ATRIAL SEPTUM The interatrial septum not well visualized. AORTA The aortic root and proximal ascending aorta are not well visualized. MITRAL VALVE Mild mitral annular calcification. Mild mitral valve regurgitation. AORTIC VALVE Trileaflet aortic valve. No aortic valve stenosis or regurgitation. TRICUSPID VALVE There is trace tricuspid valve regurgitation. PULMONARY VALVE No pulmonary valve regurgitation or stenosis. VESSELS The inferior vena cava was not well visualized. PERICARDIUM No pericardial effusion. Bolivar Moreira MD, FACC, [facility] (Electronically Signed) Final Date:20 January 2018 13:29
--- NOTE | 2018-01-20 15:08 | PD.CARD.PN ---
Subjective Subjective Remarks patient upset @ admission and evaluation process, appears slightly confused but ow alert in nad Objective Medications Current Medications Medications (Trade) Dose Ordered Sig/Charla Route Start Time Stop Time Status Last Admin (NS Flush) 2 ml UNSCH PRN IV FLUSH 01/19/18 12:45 (NS Flush) 2 ml BID IV FLUSH 01/19/18 21:00 01/20/18 10:28 (Duoneb Neb) 1 ampule Q6HR WHILE AWAKE NEB NEB 01/20/18 14:00 01/20/18 13:25 (Coreg) 6.25 mg Q12HR PO 01/20/18 21:00 (Prinivil) 5 mg Q12HR PO 01/20/18 21:00 (Ecotrin Ec) 325 mg DAILY PO 01/21/18 09:00 (Lipitor) 80 mg HS PO 01/20/18 21:00 Vital Signs / I&O Vital Signs Date Time Temp Pulse Resp B/P (MAP) Pulse Ox O2 Delivery O2 Flow Rate FiO2 01/20/18 11:22 98.2 76 20 141/83 (102) 95 01/20/18 08:38 98.0 79 16 145/72 (96) 96 146/82 (103) 153/88 (109) 01/20/18 04:52 97.9 80 18 129/71 (90) 96 01/20/18 00:21 98.2 76 14 190/81 (117) 97 01/19/18 19:10 98.0 89 14 182/89 (120) 97 01/19/18 18:30 98.4 86 18 119/87 (98) 98 01/19/18 18:20 75 17 142/78 (99) 100 Room Air 01/19/18 16:03 85 17 178/86 (116) 98 Room Air Physical Exam GENERAL: SKIN: Warm and dry. HEAD: Normocephalic. EYES: No scleral icterus. No injection or drainage. NECK: Supple, trachea midline. No JVD or lymphadenopathy. CARDIOVASCULAR: Regular rate and rhythm without murmurs, gallops, or rubs. RESPIRATORY: Breath sounds equal bilaterally. No accessory muscle use. GASTROINTESTINAL: Abdomen soft, non-tender, nondistended. MUSCULOSKELETAL: No cyanosis, or edema. BACK: Nontender without obvious deformity. No CVA tenderness. Laboratory Laboratory Tests Test 01/19/18 17:10 01/20/18 04:20 Magnesium Level 2.3 MG/DL Troponin I LESS THAN 0.02 NG/ML Vitamin B12 Level 414 PG/ML Thyroid Stimulating Hormone 3rd Gen 0.767 uIU/ML White Blood Count 11.7 TH/MM3 Red Blood Count 4.60 MIL/MM3 Hemoglobin 14.5 GM/DL Hematocrit 41.6 % Mean Corpuscular Volume 90.3 FL Mean Corpuscular Hemoglobin 31.5 PG Mean Corpuscular Hemoglobin Concent 34.8 % Red Cell Distribution Width 13.4 % Platelet Count 268 TH/MM3 Mean Platelet Volume 8.8 FL Neutrophils (%) (Auto) 78.7 % Lymphocytes (%) (Auto) 11.9 % Monocytes (%) (Auto) 9.2 % Eosinophils (%) (Auto) 0.1 % Basophils (%) (Auto) 0.1 % Neutrophils # (Auto) 9.2 TH/MM3 Lymphocytes # (Auto) 1.4 TH/MM3 Monocytes # (Auto) 1.1 TH/MM3 Eosinophils # (Auto) 0.0 TH/MM3 Basophils # (Auto) 0.0 TH/MM3 CBC Comment DIFF FINAL Differential Comment Blood Urea Nitrogen 10 MG/DL Creatinine 0.78 MG/DL Random Glucose 107 MG/DL Calcium Level 9.0 MG/DL Sodium Level 142 MEQ/L Potassium Level 3.7 MEQ/L Chloride Level 104 MEQ/L Carbon Dioxide Level 28.4 MEQ/L Anion Gap 10 MEQ/L Estimat Glomerular Filtration Rate 98 ML/MIN Assessment and Plan Problem List: (1) Coronary disease ICD Codes: I25.9 - Coronary disease Status: Acute (2) Syncope ICD Codes: R55 - Syncope Status: Acute Assessment and Plan 1.) CAD - assymptomatic, continue aspirin, coreg, lisinopril, lipitor 2.) Syncope - echo unremarkable, f/u neuro recs, continue telemetry Bolivar Moreira MD Jan 20, 2018 15:08
[2018-01-20] MEDS ORDERED: cloNIDine HCL 0.1 MG TAB PO PRN (15:30)
[2018-01-20 17:39] LABS: BILIRUBIN, URINE NEG (NEG); BLOOD, URINE SMALL (NEG); GLUCOSE,URINE NEG (NEG); KETONE, URINE TRACE mg/dL (NEG); MUCUS URINE FEW /lpf (OCC); NITRITE,URINE NEG (NEG); URINE COLOR YELLOW (YELLW/STRAW); URINE LEUKOCYTE ESTERASE SMALL (NEG)
--- NOTE | 2018-01-20 18:25 | RADRPT ---
EXAM DATE/TIME: 01/20/2018 17:26 [facility] COMPARISON: No previous studies available for comparison. INDICATIONS : Altered mental status. Syncope. MEDICAL HISTORY : Hypertension. SURGICAL HISTORY : CABG ENCOUNTER: Subsequent ACUITY: 1 day PAIN SCORE: 0/10 LOCATION: head. TECHNIQUE: Multiplanar, multisequence MRI of the brain was performed without contrast. FINDINGS: CEREBRUM: The ventricles are normal for age. No evidence of midline shift, mass lesion, hemorrhage or acute in farction. No extraaxial fluid collections are seen. The pituitary gland and suprasellar cistern are normal in configuration. WHITE MATTER: There are multiple small focal areas of signal abnormality within the cerebral white matter. POSTERIOR FOSSA: The cerebellum and brainstem are intact. The 4th ventricle is midline. The cerebellopontine angle is unremarkable. The cerebellar tonsils are normal in position. DIFFUSION IMAGING: No focal areas of restricted diffusion are seen. No evidence of acute infarction. EXTRACRANIAL: The visualized portions of the orbits and paranasal sinuses are unremarkable. CONCLUSION: 1. No acute abnormality seen. 2. Small areas of demyelination likely from small vessel ischemic change versus other underlying demy elinating causes Ricky Evans MD on January 20, 2018 at 18:20 Board Certified Radiologist. This report was verified electronically.
--- NOTE | 2018-01-20 18:26 | RADRPT ---
EXAM DATE/TIME: 01/20/2018 17:26 [facility] COMPARISON: No previous studies available for comparison. INDICATIONS : Altered mental status. Syncope. MEDICAL HISTORY : Hypertension. SURGICAL HISTORY : CABG ENCOUNTER: Subsequent ACUITY: 1 day PAIN SCORE: 0/10 LOCATION: head. Please note a normal MRA of the brain does not entirely exclude the possibility of a small aneurysm, nor the possibility of distal intracranial vessel disease. TECHNIQUE: 3D time of flight MRA was performed. Source images, multiplanar STS MIP, and 3D volume MIP reconstru ctions were reviewed. FINDINGS: There is excellent visualization of the major intracranial arteries out to the second-order branch ve ssels. There is no evidence for aneurysm, vessel truncation or stenosis, and no evidence for vascula r malformation. CONCLUSION: No acute disease. Ricky Evans MD on January 20, 2018 at 18:23 Board Certified Radiologist. This report was verified electronically.
[2018-01-20 21:27] LABS: HEMOGLOBIN A1C 5.8 % (4.3-6.0)
[2018-01-20] MEDS: LISINOPRIL 5 MG TAB PO SCH (21:47)
[2018-01-20] MEDS: ATORVASTATIN 80 MG TAB PO SCH (21:47)
[2018-01-20] MEDS: CARVEDILOL 6.25 MG TAB PO SCH (21:47)
--- NOTE | 2018-01-20 22:45 | EKG ---
Date Performed: 01/19/2018 Time Performed: 17:17:14 PTAGE: 72 years EKG: Sinus rhythm WITH OCCASIONAL SUPRAVENTRICULAR PREMATURE COMPLEXES NONSPECIFIC T-WAVE ABNORMALITY BORDERLINE ECG PREVIOUS TRACING : 01/19/2018 10.32 Since the previous tracing, no significant change noted DOCTOR: Samuel Ware Interpretating Date/Time 01/20/2018 22:44:16
--- NOTE | 2018-01-20 23:09 | EKG ---
Date Performed: 01/19/2018 Time Performed: 10:32:10 PTAGE: 72 years EKG: Sinus rhythm WITH OCCASIONAL SUPRAVENTRICULAR PREMATURE COMPLEXES NONSPECIFIC T-WAVE ABNORMALITY BORDERLINE ECG C ompared to PREVIOUS TRACING , NS T wave changes present DOCTOR: Samuel Ware Interpretating Date/Time 01/20/2018 23:08:31
[2018-01-21] VITALS (7 sets, daily range): BP systolic 130–168; BP diastolic 65–90; PULSE 67–79; RESP 16–18; TEMP 97.8–98.9; O2SAT 81–98
[2018-01-21] MEDS: RESP: ALBUTEROL 2.5 MG/IPRATROPIUM 0.5 MG NEB (SCH) NEB ×3 (08:07→21:21)
--- NOTE | 2018-01-21 09:05 | HHI.PR ---
Subjective Remarks Follow-up on patient with syncopal episode. Patient seen and examined. Patient denies any complaints. He is anxious about being discharged. He remains confused and oriented to self only. He denies any fever or chills. Denies any headache visual loss or dizziness. Denies any chest pain or shortness of breath. Denies any nausea, vomiting or abdominal pain. VSS. Objective Vitals Vital Signs Date Time Temp Pulse Resp B/P (MAP) Pulse Ox O2 Delivery O2 Flow Rate FiO2 01/21/18 08:01 98.0 72 18 153/77 (102) 97 01/21/18 03:02 98.7 71 16 130/77 (94) 97 01/20/18 23:15 98.9 70 16 134/80 (98) 97 01/20/18 19:33 99.4 89 17 175/86 (115) 98 01/20/18 16:01 98.0 77 18 135/81 (99) 97 01/20/18 11:22 98.2 76 20 141/83 (102) 95 Result Diagram: 01/20/18 0420 01/20/18 0420 Imaging Last Impressions Head Magnetic Resonance Angiography 01/20/18 0000 Signed Impressions: Service Date/Time: Saturday, January 20, 2018 17:26 - CONCLUSION: No acute disease. Ricky Evans MD Brain MRI 01/20/18 0000 Signed Impressions: Service Date/Time: Saturday, January 20, 2018 17:26 - CONCLUSION: 1. No acute abnormality seen. 2. Small areas of demyelination likely from small vessel ischemic change versus other underlying demyelinating causes Ricky Evans MD Head CT 01/19/18 1051 Signed Impressions: Service Date/Time: Friday, January 19, 2018 11:10 - CONCLUSION: 1. No acute findings. Crow Matthews MD Chest X-Ray 01/19/18 1051 Signed Impressions: Service Date/Time: Friday, January 19, 2018 10:59 - CONCLUSION: 1. No acute findings. Postoperative median sternotomy. Crow Matthews MD Cervical Spine CT 01/19/18 1051 Signed Impressions: Service Date/Time: Friday, January 19, 2018 11:10 - CONCLUSION: 1. No acute findings. Moderate degenerative disc disease and facet arthropathy. Crow Matthews MD Carotid Artery Ultrasound 01/19/18 0000 Signed Impressions: Service Date/Time: Friday, January 19, 2018 12:58 - CONCLUSION: 1. Minimal bilateral carotid plaque. 2. No evidence of hemodynamically significant stenosis. 3. Antegrade flow in both to arteries. Ashok Henry MD Objective Remarks GENERAL: This is a well-nourished, well-developed male patient, in no apparent distress. Awake and alert. Sitting up in bed. SKIN: Cool and dry. HEAD: Atraumatic. Normocephalic. EYES: Extraocular motions intact. No scleral icterus. No injection or drainage. ENT: Nose without bleeding or purulent drainage. Airway patent. MMM. NECK: Trachea midline. CARDIOVASCULAR: Regular rate and rhythm without murmurs, gallops, or rubs. RESPIRATORY: Good air entry. Clear to auscultation bilaterally. No wheezing noted. GASTROINTESTINAL: Abdomen soft, non-tender, nondistended. No hepato-splenomegaly , or palpable masses. No guarding. MUSCULOSKELETAL: Extremities without clubbing, cyanosis, or edema. NEUROLOGICAL: Awake and alert. Patient is oriented to self only. Cranial nerves II through XII grossly intact. Motor and sensory grossly within normal limits. No focal neurologic findings. Normal speech. Medications and IVs Current Medications Medications (Trade) Dose Ordered Sig/Charla Route Start Time Stop Time Status Last Admin (NS Flush) 2 ml UNSCH PRN IV FLUSH 01/19/18 12:45 (NS Flush) 2 ml BID IV FLUSH 01/19/18 21:00 01/20/18 21:47 (Duoneb Neb) 1 ampule Q6HR WHILE AWAKE NEB NEB 01/20/18 14:00 01/21/18 08:07 (Coreg) 6.25 mg Q12HR PO 01/20/18 21:00 01/20/18 21:47 (Prinivil) 5 mg Q12HR PO 01/20/18 21:00 01/20/18 21:47 (Ecotrin Ec) 325 mg DAILY PO 01/21/18 09:00 (Lipitor) 80 mg HS PO 01/20/18 21:00 01/20/18 21:47 (Catapres) 0.1 mg Q6H PRN PO 01/20/18 15:30 A/P Assessment and Plan 72-year-old male with past medical history of coronary artery disease status post previous CABG, hypertension and dyslipidemia who was brought in to [facility] ED by his sister who witnessed patient have a syncopal episode, fall backward and hit his head. //Syncopal episode in patient with CAD s/p CABG -Consult neurology, appreciate recommendations - likely early dementia, cleared for discharge if MRI/MRA WNL. No driving. Needs outpt cognitive evaluation. F/U in 1-2 weeks. -Consult cardiology, appreciate recommendations - aspirin, statin and resume BB when cleared by neurology. -workup negative -seizure and fall precautions //Encephalopathy/AMS -per Neuro, likely mci/early dementia -Monitor -ST cognitive evaluation - patient needs supervision at discharge due to cognitive impairment -Case management assisting with discharge planning, patient to be evaluated by SNF facility later today //Bacteruria //Hematuria -Patient will need repeat UA for reevaluation of hematuria as outpatient, recommend Urology appt as outpatient -Patient is asymptomatic, urine culture shows no growth. No indication to begin antibiotic treatment at this time. //Suspected Mild COPD exacerbation, resolved -Duonebs -CXR reviewed, no evidence of acute cardiopulmonary process -O2 sats 97% on room air -monitor respiratory status //Hypokalemia -Resolved status post repletion //Hypertension, controlled //Dyslipidemia -Continue on home medications //DVT prophylaxis -Bilateral SCD/DIMITRIS hose Discharge patient to home Condition on discharge: stable Heart healthy Diet as tolerated Ad Annetta activity Rx written: Lisinopril, Coreg, Lipitor Follow-up with primary care physician, neurology, cardiology and urology as outpatient Discharge Planning Patient medically cleared for discharge. Discharge pending placement, case management assisting. Lisseth Russell Jan 21, 2018 09:05
--- NOTE | 2018-01-21 09:09 | HHI.PR ---
Objective Vitals Vital Signs Date Time Temp Pulse Resp B/P (MAP) Pulse Ox O2 Delivery O2 Flow Rate FiO2 01/21/18 08:01 98.0 72 18 153/77 (102) 97 01/21/18 03:02 98.7 71 16 130/77 (94) 97 01/20/18 23:15 98.9 70 16 134/80 (98) 97 01/20/18 19:33 99.4 89 17 175/86 (115) 98 01/20/18 16:01 98.0 77 18 135/81 (99) 97 01/20/18 11:22 98.2 76 20 141/83 (102) 95 Result Diagram: 01/20/18 0420 01/20/18 0420 Imaging Last Impressions Head Magnetic Resonance Angiography 01/20/18 0000 Signed Impressions: Service Date/Time: Saturday, January 20, 2018 17:26 - CONCLUSION: No acute disease. Ricky Evans MD Brain MRI 01/20/18 0000 Signed Impressions: Service Date/Time: Saturday, January 20, 2018 17:26 - CONCLUSION: 1. No acute abnormality seen. 2. Small areas of demyelination likely from small vessel ischemic change versus other underlying demyelinating causes Ricky Evans MD Head CT 01/19/18 1051 Signed Impressions: Service Date/Time: Friday, January 19, 2018 11:10 - CONCLUSION: 1. No acute findings. Crow Matthews MD Chest X-Ray 01/19/18 1051 Signed Impressions: Service Date/Time: Friday, January 19, 2018 10:59 - CONCLUSION: 1. No acute findings. Postoperative median sternotomy. Crow Matthews MD Cervical Spine CT 01/19/18 1051 Signed Impressions: Service Date/Time: Friday, January 19, 2018 11:10 - CONCLUSION: 1. No acute findings. Moderate degenerative disc disease and facet arthropathy. Crow Matthews MD Carotid Artery Ultrasound 01/19/18 0000 Signed Impressions: Service Date/Time: Friday, January 19, 2018 12:58 - CONCLUSION: 1. Minimal bilateral carotid plaque. 2. No evidence of hemodynamically significant stenosis. 3. Antegrade flow in both to arteries. Ashok Henry MD Objective Remarks GENERAL: This is a well-nourished, well-developed male patient, in no apparent distress. Awake and alert. Sitter at the bedside. SKIN: Cool and dry. HEAD: Atraumatic. Normocephalic. EYES: Extraocular motions intact. No scleral icterus. No injection or drainage. ENT: Nose without bleeding or purulent drainage. Airway patent. MMM. NECK: Trachea midline. CARDIOVASCULAR: Regular rate and rhythm without murmurs, gallops, or rubs. RESPIRATORY: Coarse BS, clears with coughing. Mild wheezing. GASTROINTESTINAL: Abdomen soft, non-tender, nondistended. No hepato-splenomegaly , or palpable masses. No guarding. MUSCULOSKELETAL: Extremities without clubbing, cyanosis, or edema. NEUROLOGICAL: Awake and alert. Patient is oriented to self only. Cranial nerves II through XII grossly intact. Motor and sensory grossly within normal limits. No focal neurologic findings. Normal speech. Medications and IVs Current Medications Medications (Trade) Dose Ordered Sig/Charla Route Start Time Stop Time Status Last Admin (NS Flush) 2 ml UNSCH PRN IV FLUSH 01/19/18 12:45 (NS Flush) 2 ml BID IV FLUSH 01/19/18 21:00 01/20/18 21:47 (Duoneb Neb) 1 ampule Q6HR WHILE AWAKE NEB NEB 01/20/18 14:00 01/21/18 08:07 (Coreg) 6.25 mg Q12HR PO 01/20/18 21:00 01/20/18 21:47 (Prinivil) 5 mg Q12HR PO 01/20/18 21:00 01/20/18 21:47 (Ecotrin Ec) 325 mg DAILY PO 01/21/18 09:00 (Lipitor) 80 mg HS PO 01/20/18 21:00 01/20/18 21:47 (Catapres) 0.1 mg Q6H PRN PO 01/20/18 15:30 A/P Assessment and Plan 72-year-old male with past medical history of coronary artery disease status post previous CABG, hypertension and dyslipidemia who was brought in to [facility] ED by his sister who witnessed patient have a syncopal episode, fall backward and hit his head. //Syncopal episode in patient with CAD s/p CABG -Consult neurology, appreciate recommendations - likely early dementia, cleared for discharge if MRI/MRA WNL. No driving. Needs outpt cognitive evaluation. F/U in 1-2 weeks. -Consult cardiology, appreciate recommendations - aspirin, statin and resume BB when cleared by neurology. -Neuro checks -orthostatic BP measurements negative -Continuous cardiac monitoring -Carotid ultrasound minimal bilateral carotid plaque, no hemodynamically significant stenosis -EEG study - no e/o seizure -Holter monitor -2D echo - pending -serial troponin and EKG, r/o ACS -Obtain UA/UDS - pending -seizure and fall precautions -TSH level 0.767 -A1c pending //Encephalopathy/AMS -?new onset dementia -Await Neurology recommendations -Monitor -ST for cognitive evaluation -Consult case management to assist with discharge planning //Suspected Mild COPD exacerbation -Duonebs -CXR reviewed, no evidence of acute cardiopulmonary process -O2 sats 96% on room air -monitor respiratory status //Hypokalemia -Resolved status post repletion //Hypertension //Dyslipidemia -Will resume patient's home medications once medication reconciliation updated //DVT prophylaxis -Bilateral SCD/DIMITRIS hose Discharge patient to home Condition on discharge: Improved Regular Diet as tolerated Ad Annetta activity Rx written: Follow-up with primary care physician Discharge Planning Discharge pending cardiology clearance and safe discharge plan, patient's who is his caregiver is in the hospital and patient unable to be home unsupervised, TENZIN assisting Lisseth Russell Jan 21, 2018 09:09
--- NOTE | 2018-01-21 09:21 | HHI.PR ---
Review/Management Diagnosis/Plan: (1) Syncope ICD Codes: R55 - Syncope Status: Acute Plan: etiology: cardiac arrhythmia? r/o vbi r/o sz glucose 119. ct brain nml i suspect he may have mci/early dementia mri/mra reviewed; no acute lesion recs neuro stable cardio eval/tele-done eeg- no sz can be dc'd today from neuro f/u with us in 1-2 weeks no driving needs outpatient cognitive eval (2) Dehydration ICD Codes: E86.0 - Dehydration Status: Acute (3) Hypertension ICD Codes: I10 - Hypertension Status: Acute (4) Hyperlipidemia ICD Codes: E78.5 - Hyperlipidemia Status: Acute Subjective Subjective Comments No acute events reported. "i'm ready to go home" No headache No chest pain No dyspnea Active Medications Current Medications Medications (Trade) Dose Ordered Sig/Charla Route Start Time Stop Time Status Last Admin (NS Flush) 2 ml UNSCH PRN IV FLUSH 01/19/18 12:45 (NS Flush) 2 ml BID IV FLUSH 01/19/18 21:00 01/20/18 21:47 (Duoneb Neb) 1 ampule Q6HR WHILE AWAKE NEB NEB 01/20/18 14:00 01/21/18 08:07 (Coreg) 6.25 mg Q12HR PO 01/20/18 21:00 01/20/18 21:47 (Prinivil) 5 mg Q12HR PO 01/20/18 21:00 01/20/18 21:47 (Ecotrin Ec) 325 mg DAILY PO 01/21/18 09:00 (Lipitor) 80 mg HS PO 01/20/18 21:00 01/20/18 21:47 (Catapres) 0.1 mg Q6H PRN PO 01/20/18 15:30 Allergies Allergies Coded Allergies No Known Allergies (Unverified03/24/14) Review of Systems All other ROS: ROS reviewed as documented in chart Exam I&O / VS Vital Signs Date Time Temp Pulse Resp B/P (MAP) Pulse Ox O2 Delivery O2 Flow Rate FiO2 01/21/18 08:01 98.0 72 18 153/77 (102) 97 01/21/18 03:02 98.7 71 16 130/77 (94) 97 01/20/18 23:15 98.9 70 16 134/80 (98) 97 3/28/18 19:33 99.4 89 17 175/86 (115) 98 01/20/18 16:01 98.0 77 18 135/81 (99) 97 01/20/18 11:22 98.2 76 20 141/83 (102) 95 General: No acute distress Eye: EOMI, Normal conjuctiva Respiratory: Non-labored respirations Cardiology: Normal rate Musculoskeletal: ROM Neurologic: Alert, Normal sensory, Normal motor, CN II-XII intact, Normal DTR's Psychiatric: Cooperative, Appropriate mood & affect Exam Comments alert, ox 2. not to exact month or date. was struggling with name of hospital, sitting up, calm, pleasant, answers other questions well, follows, eomi, ou 3- 2mm, no drift, msr sym, no drift Objective Micro and Labs Laboratory Tests Test 01/20/18 17:15 Urine Color YELLOW Urine Turbidity CLEAR Urine pH 6.0 Urine Specific Randolph 1.015 Urine Protein TRACE Urine Glucose (UA) NEG Urine Ketones TRACE Urine Occult Blood SMALL Urine Nitrite NEG Urine Bilirubin NEG Urine Urobilinogen 8.0 Urine Leukocyte Esterase SMALL Urine RBC 42 Urine WBC 10 Urine Mucus FEW Microscopic Urinalysis Comment CULTURE INDICATED Urine Opiates Screen NEG Urine Barbiturates Screen NEG Urine Amphetamines Screen NEG Urine Benzodiazepines Screen NEG Urine Cocaine Screen NEG Urine Cannabinoids Screen NEG Date/Time Source Procedure Growth Status 01/20/18 17:15 Urine Clean Catch Urine Culture Pending Received Alexx Nielsen MD Jan 21, 2018 09:21
[2018-01-21] MEDS: LISINOPRIL 5 MG TAB PO SCH ×2 (11:10→20:58)
[2018-01-21] MEDS: ASPIRIN EC 325 MG TABEC PO SCH (11:10)
[2018-01-21] MEDS: SODIUM CHLORIDE 0.9% FLUSH 10 ML FLUSH IV FLUSH SCH ×2 (11:11→20:58)
[2018-01-21] MEDS: CARVEDILOL 6.25 MG TAB PO SCH ×2 (11:11→20:58)
[2018-01-21] MEDS ORDERED: CARV6.25 PO (14:02)
[2018-01-21] MEDS ORDERED: ATOR80TA45 PO (14:02)
[2018-01-21] MEDS ORDERED: LISI-519 PO (14:02)
--- NOTE | 2018-01-21 14:30 | HM ---
Date Performed: 01/19/2018 Time Performed: 17:10:00 HOOKUP DATE: 01/19/18 05:10:00 PM Tue ANALYSIS START TIME: 01/19/2018 5:15:00 PM ANALYSIS END TIME: 01/20/2018 4:52:59 PM PATIENT AGE: 72 PATIENT HEIGHT: 71 PATIENT WEIGHT: 209 DRUG LIST: ROOM # [id number] PATIENT DIAGNOSIS: SYNCOPE TEST NARRATIVE: The patient's average heart rate was 85 BPM. Heart rates greater than 120 B PM were noted 1% of the time. No episodes of bradycardia were noted. No pauses exceeding 2.0 sec onds were noted. 229 ventricular ectopics, which represented < 1% of the total beat count, were n oted. The highest ventricular ectopic frequency occurred from 10:00 PM to 11:00 PM Tue. During this time 44 VE(s) occurred. Ventricular ectopics were observed as 223 isolated beat(s) and as 3 couplet (s). No runs were noted. Some of the ventricular beats occurred in bigeminal cycles. 1013 supra ventricular ectopics, which represented 1% of the total beat count, were noted. The highest supraven tricular ectopic frequency occurred from 06:00 AM to 07:00 AM Wed. During this time 124 SVE(s) occur red. No episodes of ST depression (defined as -1.0 mm or more) were noted in channel 1. No episo gallo of ST depression (defined as -1.0 mm or more) were noted in channel 2. No episodes of ST depress ion (defined as -1.0 mm or more) were noted in channel 3. TEST INTERPRETATION: The patient is in Sinus rhythm throughout the recording. The average heart rate is 85, minimum heart rate 59. There are 223 PVCs in cluding three couplets and 3 bigeminal cycles. There are frequent PACs with 962 atrial premature beat s. There are 2 runs of SVT, one lasting 14 beats at a rate of 182 at 11:12 am and one lasting 13 argelia ts at a rate of 194 bpm at 10:57am. There is no diary returned. CONCLUSION: Sinus rhythm throughout the recording with ectopy and 2 short runs of SVT as described above. Signed by : Tashi Mariano
--- NOTE | 2018-01-21 19:23 | PD.CARD.PN ---
Subjective Subjective Remarks patient upset @ admission and evaluation process, appears slightly confused but ow alert in nad, wants to go home, standing in bhagat Objective Medications Current Medications Medications (Trade) Dose Ordered Sig/Charla Route Start Time Stop Time Status Last Admin (NS Flush) 2 ml UNSCH PRN IV FLUSH 01/19/18 12:45 (NS Flush) 2 ml BID IV FLUSH 01/19/18 21:00 01/21/18 11:11 (Duoneb Neb) 1 ampule Q6HR WHILE AWAKE NEB NEB 01/20/18 14:00 01/21/18 08:07 (Coreg) 6.25 mg Q12HR PO 01/20/18 21:00 01/21/18 11:11 (Prinivil) 5 mg Q12HR PO 01/20/18 21:00 01/21/18 11:10 (Ecotrin Ec) 325 mg DAILY PO 01/21/18 09:00 01/21/18 11:10 (Lipitor) 80 mg HS PO 01/20/18 21:00 01/20/18 21:47 (Catapres) 0.1 mg Q6H PRN PO 01/20/18 15:30 Vital Signs / I&O Vital Signs Date Time Temp Pulse Resp B/P (MAP) Pulse Ox O2 Delivery O2 Flow Rate FiO2 01/21/18 16:06 98.9 67 18 131/65 (87) 98 01/21/18 11:20 97.8 77 18 133/82 (99) 95 01/21/18 08:01 98.0 72 18 153/77 (102) 97 01/21/18 03:02 98.7 71 16 130/77 (94) 97 01/20/18 23:15 98.9 70 16 134/80 (98) 97 01/20/18 19:33 99.4 89 17 175/86 (115) 98 Physical Exam GENERAL: SKIN: Warm and dry. HEAD: Normocephalic. EYES: No scleral icterus. No injection or drainage. NECK: Supple, trachea midline. No JVD or lymphadenopathy. CARDIOVASCULAR: Regular rate and rhythm without murmurs, gallops, or rubs. RESPIRATORY: Breath sounds equal bilaterally. No accessory muscle use. GASTROINTESTINAL: Abdomen soft, non-tender, nondistended. MUSCULOSKELETAL: No cyanosis, or edema. BACK: Nontender without obvious deformity. No CVA tenderness. Assessment and Plan Problem List: (1) Coronary disease ICD Codes: I25.9 - Coronary disease Status: Acute (2) Syncope ICD Codes: R55 - Syncope Status: Acute Assessment and Plan 1.) CAD - assymptomatic, continue aspirin, coreg, lisinopril, lipitor, ok to dc from cv standpoint, f/u with me kong 2.) Syncope - echo unremarkable, f/u neuro recs, continue telemetry Bolivar Moreira MD Jan 21, 2018 19:23
[2018-01-21] MEDS: ATORVASTATIN 80 MG TAB PO SCH (20:58)
[2018-01-22 03:24] VITALS: BP 114/65; PULSE 74; RESP 18; TEMP 97.8; O2SAT 98
[2018-01-22 07:40] VITALS: BP 137/75; PULSE 67; RESP 18; TEMP 98; O2SAT 99
[2018-01-22] MEDS: RESP: ALBUTEROL 2.5 MG/IPRATROPIUM 0.5 MG NEB (SCH) NEB (08:04)
--- NOTE | 2018-01-22 08:15 | HHI.PR ---
Subjective Remarks Follow-up on patient with syncopal episode. Patient seen and examined. He denies any complaints. He is requesting to be discharged to home. Any fever or chills. He denies any cough, chest pain or shortness of breath. He denies any nausea, vomiting or abdominal pain. He reports good appetite. Denies any nausea or vomiting. VSS. Patient is afebrile. Objective Vitals Vital Signs Date Time Temp Pulse Resp B/P (MAP) Pulse Ox O2 Delivery O2 Flow Rate FiO2 01/22/18 07:40 98.0 67 18 137/75 (95) 99 01/22/18 03:24 97.8 74 18 114/65 (81) 98 01/21/18 23:09 98.1 69 18 131/75 (93) 94 01/21/18 21:22 98 21 01/21/18 20:22 98.5 79 18 168/90 (116) 81 01/21/18 16:06 98.9 67 18 131/65 (87) 98 01/21/18 11:20 97.8 77 18 133/82 (99) 95 Result Diagram: 01/20/18 0420 01/20/18 0420 Imaging Last Impressions Head Magnetic Resonance Angiography 01/20/18 0000 Signed Impressions: Service Date/Time: Saturday, January 20, 2018 17:26 - CONCLUSION: No acute disease. Ricky Evans MD Brain MRI 01/20/18 0000 Signed Impressions: Service Date/Time: Saturday, January 20, 2018 17:26 - CONCLUSION: 1. No acute abnormality seen. 2. Small areas of demyelination likely from small vessel ischemic change versus other underlying demyelinating causes Ricky Evans MD Head CT 01/19/18 1051 Signed Impressions: Service Date/Time: Friday, January 19, 2018 11:10 - CONCLUSION: 1. No acute findings. Crow Matthews MD Chest X-Ray 01/19/18 105 Signed Impressions: Service Date/Time: Friday, January 19, 2018 10:59 - CONCLUSION: 1. No acute findings. Postoperative median sternotomy. Crow Matthews MD Cervical Spine CT 01/19/18 105 Signed Impressions: Service Date/Time: Friday, January 19, 2018 11:10 - CONCLUSION: 1. No acute findings. Moderate degenerative disc disease and facet arthropathy. Crow Matthews MD Carotid Artery Ultrasound 01/19/18 0000 Signed Impressions: Service Date/Time: Friday, January 19, 2018 12:58 - CONCLUSION: 1. Minimal bilateral carotid plaque. 2. No evidence of hemodynamically significant stenosis. 3. Antegrade flow in both to arteries. Ashok Henry MD Objective Remarks GENERAL: This is a well-nourished, well-developed male patient, in no apparent distress. Awake and alert. Sitting on side of bed eating breakfast. SKIN: Cool and dry. HEAD: Atraumatic. Normocephalic. EYES: Extraocular motions intact. No scleral icterus. No injection or drainage. ENT: Nose without bleeding or purulent drainage. Airway patent. MMM. NECK: Trachea midline. CARDIOVASCULAR: Regular rate and rhythm without murmurs, gallops, or rubs. RESPIRATORY: Good air entry. Clear to auscultation bilaterally. No wheezing noted. GASTROINTESTINAL: Abdomen soft, non-tender, nondistended. MUSCULOSKELETAL: Extremities without clubbing, cyanosis, or edema. NEUROLOGICAL: Awake and alert. Patient is oriented to self only. Cranial nerves II through XII grossly intact. Motor and sensory grossly within normal limits. No focal neurologic findings. Normal speech. PSYCHIATRIC: Appropriate mood and affect. Poor insight. Medications and IVs Current Medications Medications (Trade) Dose Ordered Sig/Charla Route Start Time Stop Time Status Last Admin (NS Flush) 2 ml UNSCH PRN IV FLUSH 01/19/18 12:45 (NS Flush) 2 ml BID IV FLUSH 01/19/18 21:00 01/21/18 20:58 (Duoneb Neb) 1 ampule Q6HR WHILE AWAKE NEB NEB 01/20/18 14:00 01/22/18 08:04 (Coreg) 6.25 mg Q12HR PO 01/20/18 21:00 01/21/18 20:58 (Prinivil) 5 mg Q12HR PO 01/20/18 21:00 01/21/18 20:58 (Ecotrin Ec) 325 mg DAILY PO 01/21/18 09:00 01/21/18 11:10 (Lipitor) 80 mg HS PO 01/20/18 21:00 01/21/18 20:58 (Catapres) 0.1 mg Q6H PRN PO 01/20/18 15:30 A/P Assessment and Plan 72-year-old male with past medical history of coronary artery disease status post previous CABG, hypertension and dyslipidemia who was brought in to [facility] ED by his sister who witnessed patient have a syncopal episode, fall backward and hit his head. Patient discharged 01/21 - discharge held pending placement, CM assisting //Syncopal episode in patient with CAD s/p CABG -Consult neurology, appreciate recommendations - likely early dementia, cleared for discharge if MRI/MRA WNL. No driving. Needs outpt cognitive evaluation. F/U in 1-2 weeks. -Consult cardiology, appreciate recommendations - aspirin, ACEI, statin and BB. Ok to d/c from CV standpoint. F/U with me kong. -workup negative -seizure and fall precautions //Encephalopathy/AMS -per Neuro, likely mci/early dementia -Monitor -ST cognitive evaluation - patient needs supervision at discharge due to cognitive impairment //Difficult placement -Case management assisting with discharge planning. Patients is currently admitted at [facility] with heart problems and states she can no longer care for him. He has a sister who is in the process of moving to [place] and is unable to care for him as well. As above, patient unsafe to be discharged to home unsupervised. Ongoing discharge planning per CM. //Bacteruria //Hematuria -Patient will need repeat UA for reevaluation of hematuria as outpatient, recommend Urology appt as outpatient -Patient is asymptomatic, urine culture shows no growth. No indication to begin antibiotic treatment at this time. //Suspected Mild COPD exacerbation, resolved -Duonebs -CXR reviewed, no evidence of acute cardiopulmonary process -O2 sats 97% on room air -monitor respiratory status //Hypokalemia -Resolved status post repletion //Hypertension, controlled //Dyslipidemia -Continue on home medications //DVT prophylaxis -Bilateral SCD/DIMITRIS hose Discharge Planning Patient medically cleared for discharge. Discharge pending placement, case management assisting. Difficult placement secondary to cognitive impairment and no family able to care for him. Lisseth Russell Jan 22, 2018 08:14
[2018-01-22] MEDS: LISINOPRIL 5 MG TAB PO SCH ×2 (10:22→21:52)
[2018-01-22] MEDS: CARVEDILOL 6.25 MG TAB PO SCH ×2 (10:22→21:52)
[2018-01-22] MEDS: ASPIRIN EC 325 MG TABEC PO SCH (10:22)
[2018-01-22] MEDS: SODIUM CHLORIDE 0.9% FLUSH 10 ML FLUSH IV FLUSH SCH ×2 (10:22→21:53)
[2018-01-22] MEDS ORDERED: RESP: ALBUTEROL 2.5 MG/IPRATROPIUM 0.5 MG NEB (PRN) NEB (12:00)
[2018-01-22 12:26] VITALS: BP 136/72; PULSE 76; RESP 18; TEMP 98; O2SAT 98
--- NOTE | 2018-01-22 12:43 | PD.CARD.PN ---
Subjective Subjective Remarks patient upset @ admission and evaluation process, appears slightly confused but ow alert in nad, wants to go home, standing in bhagat Objective Medications Current Medications Medications (Trade) Dose Ordered Sig/Charla Route Start Time Stop Time Status Last Admin (NS Flush) 2 ml UNSCH PRN IV FLUSH 01/19/18 12:45 (NS Flush) 2 ml BID IV FLUSH 01/19/18 21:00 01/22/18 10:22 (Coreg) 6.25 mg Q12HR PO 01/20/18 21:00 01/22/18 10:22 (Prinivil) 5 mg Q12HR PO 01/20/18 21:00 01/22/18 10:22 (Ecotrin Ec) 325 mg DAILY PO 01/21/18 09:00 01/22/18 10:22 (Lipitor) 80 mg HS PO 01/20/18 21:00 01/21/18 20:58 (Catapres) 0.1 mg Q6H PRN PO 01/20/18 15:30 (Duoneb Neb) 1 ampule Q4HR NEB PRN NEB 01/22/18 12:00 Vital Signs / I&O Vital Signs Date Time Temp Pulse Resp B/P (MAP) Pulse Ox O2 Delivery O2 Flow Rate FiO2 01/22/18 12:26 98.0 76 18 136/72 (93) 98 01/22/18 07:40 98.0 67 18 137/75 (95) 99 01/22/18 03:24 97.8 74 18 114/65 (81) 98 01/21/18 23:09 98.1 69 18 131/75 (93) 94 01/21/18 21:22 98 21 01/21/18 20:22 98.5 79 18 168/90 (116) 81 01/21/18 16:06 98.9 67 18 131/65 (87) 98 Physical Exam GENERAL: SKIN: Warm and dry. HEAD: Normocephalic. EYES: No scleral icterus. No injection or drainage. NECK: Supple, trachea midline. No JVD or lymphadenopathy. CARDIOVASCULAR: Regular rate and rhythm without murmurs, gallops, or rubs. RESPIRATORY: Breath sounds equal bilaterally. No accessory muscle use. GASTROINTESTINAL: Abdomen soft, non-tender, nondistended. MUSCULOSKELETAL: No cyanosis, or edema. BACK: Nontender without obvious deformity. No CVA tenderness. Assessment and Plan Problem List: (1) Coronary disease ICD Codes: I25.9 - Coronary disease Status: Acute (2) Syncope ICD Codes: R55 - Syncope Status: Acute Assessment and Plan 1.) CAD - assymptomatic, continue aspirin, coreg, lisinopril, lipitor, ok to dc from cv standpoint, f/u with me kong 2.) Syncope - echo unremarkable, f/u neuro recs, continue telemetry Bolivar Moreira MD Jan 22, 2018 12:43
[2018-01-22 16:51] VITALS: BP 125/71; PULSE 74; RESP 18; TEMP 98; O2SAT 97
[2018-01-22] MEDS ORDERED: QUEtiapine FUMARATE 25 MG TAB PO ONE (18:00)
[2018-01-22] MEDS ORDERED: LORazepam 2 MG/ML VIAL IM ONE (18:00)
[2018-01-22 19:52] VITALS: BP_SYST 118; BP_SYST 132; BP_DIAS 62; BP_DIAS 73; PULSE 82; RESP 17; TEMP 97.2; O2SAT 96
[2018-01-22] MEDS: ATORVASTATIN 80 MG TAB PO SCH (21:52)
[2018-01-23] MEDS ORDERED: diphenhydrAMINE HCL 50 MG/ML VIAL IV PUSH ONE (00:30)
[2018-01-23 02:29] VITALS: BP 147/77; PULSE 72; RESP 18; O2SAT 95
--- NOTE | 2018-01-23 08:01 | HHI.PR ---
Subjective Remarks Follow-up on patient with syncopal episode. Patient seen and examined. Patient became agitated and combative overnight. Given IM Ativan and placed in soft restraints. Patient is calm and pleasant this morning. No recollection of yesterday's events. He denies any complaints. States he slept well. Discussed with nursing staff, no acute issues noted. Patient's is now home from the hospital and is able to bring him home under her supervision. Objective Vitals Vital Signs Date Time Temp Pulse Resp B/P (MAP) Pulse Ox O2 Delivery O2 Flow Rate FiO2 01/23/18 02:29 72 18 147/77 (100) 95 01/22/18 19:52 97.2 82 17 132/73 (92) 96 01/22/18 16:51 98.0 74 18 125/71 (89) 97 01/22/18 12:26 98.0 76 18 136/72 (93) 98 Result Diagram: 01/20/18 0420 01/20/18 0420 Imaging Last Impressions Head Magnetic Resonance Angiography 01/20/18 0000 Signed Impressions: Service Date/Time: Saturday, January 20, 2018 17:26 - CONCLUSION: No acute disease. Ricky Evans MD Brain MRI 01/20/18 0000 Signed Impressions: Service Date/Time: Saturday, January 20, 2018 17:26 - CONCLUSION: 1. No acute abnormality seen. 2. Small areas of demyelination likely from small vessel ischemic change versus other underlying demyelinating causes Ricky Evans MD Head CT 01/19/18 1051 Signed Impressions: Service Date/Time: Friday, January 19, 2018 11:10 - CONCLUSION: 1. No acute findings. Crow Matthews MD Chest X-Ray 01/19/18 105 Signed Impressions: Service Date/Time: Friday, January 19, 2018 10:59 - CONCLUSION: 1. No acute findings. Postoperative median sternotomy. Crow Matthews MD Cervical Spine CT 01/19/18 105 Signed Impressions: Service Date/Time: Friday, January 19, 2018 11:10 - CONCLUSION: 1. No acute findings. Moderate degenerative disc disease and facet arthropathy. Crow Matthews MD Carotid Artery Ultrasound 01/19/18 0000 Signed Impressions: Service Date/Time: Friday, January 19, 2018 12:58 - CONCLUSION: 1. Minimal bilateral carotid plaque. 2. No evidence of hemodynamically significant stenosis. 3. Antegrade flow in both to arteries. Ashok Henry MD Objective Remarks GENERAL: This is a well-nourished, well-developed male patient, in no apparent distress. Awake and alert. Lying in bed. Confused. SKIN: Cool and dry. HEAD: Atraumatic. Normocephalic. EYES: Extraocular motions intact. No scleral icterus. No injection or drainage. ENT: Nose without bleeding or purulent drainage. Airway patent. MMM. NECK: Trachea midline. CARDIOVASCULAR: Regular rate and rhythm without murmurs, gallops, or rubs. RESPIRATORY: Good air entry. Clear to auscultation bilaterally. No wheezing noted. GASTROINTESTINAL: Abdomen soft, non-tender, nondistended. MUSCULOSKELETAL: Extremities without clubbing, cyanosis, or edema. NEUROLOGICAL: Awake and alert. Patient is oriented to self only. Cranial nerves II through XII grossly intact. Motor and sensory grossly within normal limits. No focal neurologic findings. Normal speech. PSYCHIATRIC: Appropriate mood and affect. Poor insight. Medications and IVs Current Medications Medications (Trade) Dose Ordered Sig/Charla Route Start Time Stop Time Status Last Admin (NS Flush) 2 ml UNSCH PRN IV FLUSH 01/19/18 12:45 (NS Flush) 2 ml BID IV FLUSH 01/19/18 21:00 01/22/18 21:53 (Coreg) 6.25 mg Q12HR PO 01/20/18 21:00 01/22/18 21:52 (Prinivil) 5 mg Q12HR PO 01/20/18 21:00 01/22/18 21:52 (Ecotrin Ec) 325 mg DAILY PO 01/21/18 09:00 01/22/18 10:22 (Lipitor) 80 mg HS PO 01/20/18 21:00 01/22/18 21:52 (Catapres) 0.1 mg Q6H PRN PO 01/20/18 15:30 (Duoneb Neb) 1 ampule Q4HR NEB PRN NEB 01/22/18 12:00 A/P Assessment and Plan 72-year-old male with past medical history of coronary artery disease status post previous CABG, hypertension and dyslipidemia who was brought in to [facility] ED by his sister who witnessed patient have a syncopal episode, fall backward and hit his head. Patient discharged 01/21 - discharge held pending placement, patient not accepted at any SNF facility. Patients is now home from the hospital and is able to take him home under her supervision. CM following. //Syncopal episode in patient with CAD s/p CABG -Consult neurology, appreciate recommendations - likely early dementia, cleared for discharge if MRI/MRA WNL. No driving. Needs outpt cognitive evaluation. F/U in 1-2 weeks. -Consult cardiology, appreciate recommendations - aspirin, ACEI, statin and BB. Ok to d/c from CV standpoint. F/U with me kong. -workup negative -seizure and fall precautions //Encephalopathy/AMS //Behavioral disturbance -per Neuro, likely mci/early dementia -Patient became combative last night requiring IM Ativan and soft restraints. Patient now calm and pleasant this morning. -Monitor -ST cognitive evaluation - patient needs supervision at discharge due to cognitive impairment. To continue with speech therapy following discharge. //Difficult placement -Case management assisting with discharge planning. Patients is currently admitted at [facility] with heart problems and states she can no longer care for him. He has a sister who is in the process of moving to [place] and is unable to care for him as well. As above, patient unsafe to be discharged to home unsupervised. -01/23 - patient's is now home from the hospital and is able to take patient home under her supervision. CM assisting with d/c planning. //Bacteruria //Hematuria -Patient will need repeat UA for reevaluation of hematuria as outpatient, recommend Urology appt as outpatient -Patient is asymptomatic, urine culture shows no growth. No indication to begin antibiotic treatment at this time. //Suspected Mild COPD exacerbation, resolved -Duonebs as needed -CXR reviewed, no evidence of acute cardiopulmonary process -O2 sats 95% on room air -monitor respiratory status //Hypokalemia -Resolved status post repletion //Hypertension, controlled //Dyslipidemia -Continue on home medications //DVT prophylaxis -Bilateral SCD/DIMITRIS hose Discharge Planning Patient medically cleared for discharge. Discharge pending placement, case management assisting. Difficult placement secondary to cognitive impairment and patients recently hospitalized. is now home, case management has confirmed patient's for come and pick him up today and take him home under her supervision. Lisseth Russell Jan 23, 2018 08:01
--- NOTE | 2018-01-23 08:59 | PD.CARD.PN ---
Subjective Subjective Remarks asleep in nad Objective Medications Current Medications Medications (Trade) Dose Ordered Sig/Charla Route Start Time Stop Time Status Last Admin (NS Flush) 2 ml UNSCH PRN IV FLUSH 01/19/18 12:45 (NS Flush) 2 ml BID IV FLUSH 01/19/18 21:00 01/22/18 21:53 (Coreg) 6.25 mg Q12HR PO 01/20/18 21:00 01/22/18 21:52 (Prinivil) 5 mg Q12HR PO 01/20/18 21:00 01/22/18 21:52 (Ecotrin Ec) 325 mg DAILY PO 01/21/18 09:00 01/22/18 10:22 (Lipitor) 80 mg HS PO 01/20/18 21:00 01/22/18 21:52 (Catapres) 0.1 mg Q6H PRN PO 01/20/18 15:30 (Duoneb Neb) 1 ampule Q4HR NEB PRN NEB 01/22/18 12:00 Vital Signs / I&O Vital Signs Date Time Temp Pulse Resp B/P (MAP) Pulse Ox O2 Delivery O2 Flow Rate FiO2 01/23/18 02:29 72 18 147/77 (100) 95 01/22/18 19:52 97.2 82 17 132/73 (92) 96 01/22/18 16:51 98.0 74 18 125/71 (89) 97 01/22/18 12:26 98.0 76 18 136/72 (93) 98 Physical Exam GENERAL: SKIN: Warm and dry. HEAD: Normocephalic. EYES: No scleral icterus. No injection or drainage. NECK: Supple, trachea midline. No JVD or lymphadenopathy. CARDIOVASCULAR: Regular rate and rhythm without murmurs, gallops, or rubs. RESPIRATORY: Breath sounds equal bilaterally. No accessory muscle use. GASTROINTESTINAL: Abdomen soft, non-tender, nondistended. MUSCULOSKELETAL: No cyanosis, or edema. BACK: Nontender without obvious deformity. No CVA tenderness. Assessment and Plan Problem List: (1) Coronary disease ICD Codes: I25.9 - Coronary disease Status: Acute (2) Syncope ICD Codes: R55 - Syncope Status: Acute Assessment and Plan 1.) CAD - assymptomatic, continue aspirin, coreg, lisinopril, lipitor, ok to dc from cv standpoint, f/u with me kong 2.) Syncope - echo unremarkable, f/u neuro recs, continue telemetry Bolivar Moreira MD Jan 23, 2018 08:59
[2018-01-23] MEDS: SODIUM CHLORIDE 0.9% FLUSH 10 ML FLUSH IV FLUSH SCH (09:00)
[2018-01-23] MEDS: CARVEDILOL 6.25 MG TAB PO SCH (09:00)
[2018-01-23] MEDS: ASPIRIN EC 325 MG TABEC PO SCH (09:00)
[2018-01-23] MEDS: LISINOPRIL 5 MG TAB PO SCH (09:00)
--- NOTE | 2018-01-23 10:13 | HHI.FF ---
Face to Face Verification Diagnosis: (1) Cognitive impairment (2) Dementia (3) Syncope (4) Hematuria (5) Coronary disease Speech Therapy Order: To Improve: Speech and communication skills, Cognitive skills Home Health Nursing Order: Medical education Signs/symptoms of disease process Medication education-adverse effect Nursing assessment with vital signs I have seen patient Kevan Berkowitz on 01/23/18. My clinical findings support the need for the requested home health care services because: Med compliance is questionable Limited ability to care for self Impaired cognition/judgement High risk of falls I certify that my clinical findings support that this patient is homebound because: Impaired cognitive ability/safety Unsafe to leave home unassisted Unable to use public transportation Lisseth Russell Jan 23, 2018 10:13
--- NOTE | 2018-02-18 16:47 | HHI.DS ---
Discharge Summary Admission Date Jan 19, 2018 at 12:37 Discharge Date: Jan 23, 2018 Admitting Diagnosis Syncope (1) Encephalopathy acute ICD Code: G93.40 - Encephalopathy, unspecified (2) Syncope ICD Code: R55 - Syncope Status: Acute (3) COPD exacerbation ICD Code: J44.1 - Chronic obstructive pulmonary disease with (acute) exacerbation (4) Hypokalemia ICD Code: E87.6 - Hypokalemia (5) Cognitive impairment ICD Code: R41.89 - Other symptoms and signs involving cognitive functions and awareness (6) Dementia ICD Code: F03.90 - Unspecified dementia without behavioral disturbance (7) Hematuria ICD Code: R31.9 - Hematuria, unspecified (8) Coronary disease ICD Code: I25.9 - Coronary disease Status: Acute Procedures None Brief History - From Admission Written by Lisseth Russell, acting as scribe for Dr. Miller on 01/19/18 at 15: 20. This is a 72-year-old male with past medical history of coronary artery disease status post previous CABG, hypertension and dyslipidemia who was brought in to [facility] ED by his sister who witnessed patient have a syncopal episode, fall backward and hit his head. Patient is extremely poor historian and therefore history is obtained from review of electronic medical record and discussion with ED physician and nursing staff. Per the ED note, patient was standing not doing anything in particular when he fell to the ground. Per the sister's report, patient was significantly altered all she was driving into the ED. He was shaking and was semi-consciousness. Patient denies any complaints at this time. He repetitively states he wants to go home. He denies any fever , chills, weakness, chest pain, shortness of breath, nausea, vomiting, abdominal pain, hematuria, dysuria or diarrhea. Reportedly, sister informed the nursing staff that patient has new onset dementia. In the ED, CT of the head was obtained which showed no acute findings. Patient's laboratory studies were significant for mild leukocytosis with white count 11.4, hypokalemia with potassium 3.3 and elevated total bilirubin 1.6. Initial troponin was negative and EKG was unremarkable. Patient had a syncopal episode in 2013 but no cause was identified. Imaging Last Impressions Head Magnetic Resonance Angiography 01/20/18 0000 Signed Impressions: Service Date/Time: Saturday, January 20, 2018 17:26 - CONCLUSION: No acute disease. Ricky Evans MD Brain MRI 01/20/18 0000 Signed Impressions: Service Date/Time: Saturday, January 20, 2018 17:26 - CONCLUSION: 1. No acute abnormality seen. 2. Small areas of demyelination likely from small vessel ischemic change versus other underlying demyelinating causes Ricky Evans MD Head CT [id number]/181050 Signed Impressions: Service Date/Time: Friday, January 19, 2018 11:10 - CONCLUSION: 1. No acute findings. Crow Matthews MD Chest X-Ray [id number]/19/181050 Signed Impressions: Service Date/Time: Friday, January 19, 2018 10:59 - CONCLUSION: 1. No acute findings. Postoperative median sternotomy. Crow Matthews MD Cervical Spine CT [id number]/19/181050 Signed Impressions: Service Date/Time: Friday, January 19, 2018 11:10 - CONCLUSION: 1. No acute findings. Moderate degenerative disc disease and facet arthropathy. Crow Matthews MD Carotid Artery Ultrasound 01/19/18 0000 Signed Impressions: Service Date/Time: Friday, January 19, 2018 12:58 - CONCLUSION: 1. Minimal bilateral carotid plaque. 2. No evidence of hemodynamically significant stenosis. 3. Antegrade flow in both to arteries. Ashok Henry MD PE at Discharge GENERAL: This is a well-nourished, well-developed male patient, in no apparent distress. Awake and alert. Lying in bed. Confused. SKIN: Cool and dry. HEAD: Atraumatic. Normocephalic. EYES: Extraocular motions intact. No scleral icterus. No injection or drainage. ENT: Nose without bleeding or purulent drainage. Airway patent. MMM. NECK: Trachea midline. CARDIOVASCULAR: Regular rate and rhythm without murmurs, gallops, or rubs. RESPIRATORY: Good air entry. Clear to auscultation bilaterally. No wheezing noted. GASTROINTESTINAL: Abdomen soft, non-tender, nondistended. MUSCULOSKELETAL: Extremities without clubbing, cyanosis, or edema. NEUROLOGICAL: Awake and alert. Patient is oriented to self only. Cranial nerves II through XII grossly intact. Motor and sensory grossly within normal limits. No focal neurologic findings. Normal speech. PSYCHIATRIC: Appropriate mood and affect. Poor insight. Pt update on day of discharge Follow-up on patient with syncopal episode. Patient seen and examined. Patient became agitated and combative overnight. Given IM Ativan and placed in soft restraints. Patient is calm and pleasant this morning. No recollection of yesterday's events. He denies any complaints. States he slept well. Discussed with nursing staff, no acute issues noted. Patient's is now home from the hospital and is able to bring him home under her supervision. Hospital Course 72-year-old male with past medical history of coronary artery disease status post previous CABG, hypertension and dyslipidemia who was brought in to [facility] ED by his sister who witnessed patient have a syncopal episode, fall backward and hit his head. Orthostatic BP measurements were negative. UDS was negative. Patient was seen in consultation by Neurology who felt patient had likely mild cognitive impairment/early dementia. He had full workup to include CT head, MRI brain and MRA brain all of which failed to show any acute process. His carotid doppler studies were negative for any hemodynamically significant stenosis. Patient was cleared for discharge from Neurology standpoint. Patient had an echocardiogram with EF 65-70%. Patient was also seen in consultation by Cardiology who recommended aspirin, ACEI, statin and BB and cleared patient for discharge from cardiac standpoint. He had mild hypokalemia that responded well to oral repletion. Patient had mild COPD exacerbation that responded well to Duoneb treatments. Patient had hematuria and was recommended to follow up with PCP and/or Urology as outpatient to repeat UA. He underwent cognitive evaluation with recommendations for supervision at discharge due to cognitive impairment. Patient was medically cleared for discharge but stayed in the hospital longer due to placement issues as his who was the patients caregiver was in the hospital herself and patient was not accepted to any SNF facility. Once the patients returned home and was available to care for the patient, he was discharged to home under the care of her supervision. Patient was instructed not to drive. Pt Condition on Discharge: Stable Discharge Disposition: Discharge Home Discharge Time: > 30 minutes Discharge Instructions DIET: Follow Instructions for: Heart Healthy Diet Activities you can perform: Regular-No Restrictions Activities to Avoid: Driving Other Activity Instructions: NO DRIVING Follow up Referrals: Cardiology - 2-3 Days Neurology - 1 Week PCP Follow-up - 1 Week Urology - 1 Week New Medications: Carvedilol (Coreg) 6.25 Mg Tab 6.25 MG PO Q12HR for Blood Pressure Management, #60 TAB Lisinopril (Lisinopril) 5 Mg Tab 5 MG PO Q12HR for Blood Pressure Management, #60 TAB Continued Medications: Aspirin (Aspirin) 325 Mg Tab 325 MG PO DAILY, #30 TAB 0 Refills Atorvastatin (Atorvastatin) 80 Mg Tab 80 MG PO HS for Cholesterol Management, #30 TAB 0 Refills (This prescription has been renewed) Discontinued Medications: Lisinopril (Lisinopril) 20 Mg Tab 20 MG PO DAILY, #30 TAB 0 Refills Lisseth Russell Feb 18, 2018 16:47
== END 2018-01-23 11:54 | disposition home or self-care (01) ==
LOC: NEPC 10:10 → NEDA 12:37 → NEPHCDU 18:41
PROVIDERS: ADMIT Internal Medicine; ATTEND Internal Medicine
DX: G93.40 Encephalopathy, unspecified (principal); J44.1 Chronic obstructive pulmonary disease with (acute) exacerbation; E87.6 Hypokalemia; I10 Essential (primary) hypertension; S09.90XA Unspecified injury of head, initial encounter; W19.XXXA Unspecified fall, initial encounter; E86.0 Dehydration; R31.9 Hematuria, unspecified; D72.829 Elevated white blood cell count, unspecified; I25.10 Atherosclerotic heart disease of native coronary artery without angina pectoris; E78.5 Hyperlipidemia, unspecified; R94.31 Abnormal electrocardiogram [ECG] [EKG]; R06.02 Shortness of breath; I25.2 Old myocardial infarction; R07.89 Other chest pain; R70.0 Elevated erythrocyte sedimentation rate; R41.89 Other symptoms and signs involving cognitive functions and awareness; F03.90 Unspecified dementia, unspecified severity, without behavioral disturbance, psychotic disturbance, mood disturbance, and anxiety; Z95.1 Presence of aortocoronary bypass graft; Z85.828 Personal history of other malignant neoplasm of skin; Z78.1 Physical restraint status
CPT/HCPCS: 70450; 70544; 70551; 71045; 72125; 80048; 80053; 80307; 81001; 82550; 82552; 82607; 83036; 83735; 84443; 84484; 85025; 85610; 85652; 85730; 87086; 93005; 93225; 93226; 93306; 93880; 94640; 94664; 95819; 96125; 97127; 99285; G0378; G9168; G9169; G9170; J1200; J2060